=== PATIENT | female | born 1950 | race Caucasian/White ===

== ENCOUNTER → 2020-03-20 09:01 | Outpatient (BNVA) | payer OTHER, SELFPAY | PROVIDERS: PCP Internal Medicine; Referring Provider Internal Medicine; Visit Provider Internal Medicine Gastroenterology | DX: Z76.89 Persons encountering health services in other specified circumstances (principal) ==

== ENCOUNTER → 2020-03-26 15:17 | Outpatient (BNVA) | payer OTHER, SELFPAY | PROVIDERS: PCP Internal Medicine; Referring Provider Internal Medicine; Visit Provider Urology | DX: Z76.89 Persons encountering health services in other specified circumstances (principal) ==

== ENCOUNTER 2020-05-21 10:28 | Day surgery (SDC) | payer OTHER, SELFPAY ==
[2020-05-15 19:42] VITALS: BMI 22.3
[2020-05-21 10:36] VITALS: BP 144/78; PULSE 65; RESP 16; TEMP 36.6; O2SAT 97
--- NOTE | 2020-05-21 10:40 | HO.ANESPROP2 ---
[facility] Past Medical History Medical History (Updated 05/15/20 @ 19:46 by Genesis Hooper RN) Anxiety Bunion, left foot Colon cancer screening (Unknown) History of migraine Hypercholesterolemia Kidney stone Osteopenia Spinal stenosis at L4-L5 level Family History Family History (Updated 03/19/20 @ 13:49 by RIANNA Vasquez) Father Myocardial infarct Mother Pneumonia Brother No problems noted. Sister Lung cancer Surgical History Surgical History (Updated 05/15/20 @ 19:45 by Genesis Hooper RN) History of colonoscopy History of foot surgery History of vocal cord polypectomy Hx of bilateral oophorectomy Hx of tonsillectomy Social History Social History (Updated 03/20/20 @ 09:19 by Leni Slaughter MD) Household Members: Children Alcohol intake: current Alcohol intake frequency: holidays/special occasions only Alcohol type: wine and hard liquor Smoking Status: Never smoker Use of substances other than those prescribed or required for medical reasons: No Advance Directives: Yes Advance Directives Information Provided: Yes Advance Directives on File: No (patient will bring with her) Advance Directives Date on File: 07/16/09 Meds Allergies Allergy/AdvReac Type Severity Reaction Status Date / Time doxycycline Allergy Unknown Foaming of Verified 05/21/20 10:36 the mouth simvastatin [SIMVASTATIN] Allergy Unknown LEG PAIN, Verified 05/21/20 10:36 muscle aches Sulfa (Sulfonamide Allergy Unknown Burning Verified 05/21/20 10:36 Antibiotics) rash on body sulfamethoxazole Allergy Unknown RASH Verified 05/21/20 10:36 [From BACTRIM] trimethoprim [From BACTRIM] Allergy Unknown RASH Verified 05/21/20 10:36 Home Medications Medication Instructions Recorded Confirmed Type ascorbic acid (vitamin C) 500 mg 500 mg PO DAILY 03/20/20 05/15/20 History capsule cholecalciferol (vitamin D3) 25 25 mcg PO DAILY 03/20/20 05/15/20 History mcg (1,000 unit) capsule ferrous sulfate 325 mg (65 mg 325 mg PO DAILY 03/20/20 05/15/20 History iron) tablet lorazepam 0.5 mg tablet 0.5 mg PO DAILY PRN 03/20/20 05/15/20 History docusate sodium 100 mg capsule 100 mg PO DAILY 03/26/20 05/15/20 History naproxen 500 mg tablet 500 mg PO BID 03/26/20 05/15/20 History pravastatin 40 mg tablet 40 mg PO BEDTIME 03/26/20 05/15/20 History aspirin 81 mg tablet,delayed 81 mg PO DAILY 04/03/20 05/15/20 History release amoxicillin 1 cap PO Q8H 05/15/20 05/15/20 History cnuwaqa-beuoipoxeqijc-nwtndrqi 1 tab PO Q4-6H PRN 05/15/20 05/15/20 History [Excedrin Migraine] multivitamin [Multi-Vitamin] 1 tab PO DAILY 05/15/20 05/15/20 History Exam Exam Date and Time: May 21, 2020 1040 Height,Weight and Vital Signs: Height 5 ft 2 in Weight 55.338 kg Airway Mallampati Class: III (Multiple caps small mouth) TM Dist: >3cm Neck ROM: Full Partial: Lower (Perm) Heart: RRR Lungs: CTA B L Assessment and Plan Assessment Anesthesia Assessment: Anesthesia Plan Discussed and PAT Visit Final Anesthetic Review NPO: Yes ASA Class: II Final Preanesthetic Review: Meds/Allgs Chart Reviewed and Anes Risks/Benef Reviewed Patient Risk: Intermediate Procedure Risk: Intermediate Anesthetic Plan Anesthetic Plan: MAC: Disposition: Standard PACU
[2020-05-21] MEDS: Lactated Ringers 1,000 ML 50 ML IVCONT (10:54)
--- NOTE | 2020-05-21 11:01 | MHC.SHP ---
Pre-Procedural Eval Section B Chief Complaint: Iron Def Anemia, Screening Details of Present Illness: Colon cancer screening, Iron deficiency Anemia NO changes from the visit 03/20/20 Relevant Family History (Specify if Yes): No Relevant Social History: None Present Medications: see Short Stay Collaborative assessment Medical History: Significant History (Spinal Stenosis, Hx kidney stones) History of Previous Operations: Relevant previous surgery/procedure and date(s) (bilateral oophorectomy) Allergies: Allergies Allergy/AdvReac Type Severity Reaction Status Date / Time doxycycline Allergy Unknown Foaming of Verified 05/21/20 10:36 the mouth simvastatin [SIMVASTATIN] Allergy Unknown LEG PAIN, Verified 05/21/20 10:36 muscle aches Sulfa (Sulfonamide Allergy Unknown Burning Verified 05/21/20 10:36 Antibiotics) rash on body sulfamethoxazole Allergy Unknown RASH Verified 05/21/20 10:36 [From BACTRIM] trimethoprim [From BACTRIM] Allergy Unknown RASH Verified 05/21/20 10:36 Review of Systems Sugical H&P ROS: Negative: Constitution, Cardiovascular, Respiratory, Neurological, Psychiatric, Gastrointestinal and Musculoskeletal and Yes, Specify: Hem-Onc (iron deficiency anemia) Exam Surgical H&P Exam: Normal: HEENT, Normal: Heart, Normal: Lungs, Normal: Extremities and Normal: Abdomen Plan Diagnosis/Plan: Unchanged Patient has been examined and remains a candidate for the planned procedure yes
[2020-05-21 11:39] VITALS: BP 90/53; PULSE 63; RESP 16; TEMP 36.3; O2SAT 97
--- NOTE | 2020-05-21 11:42 | PM.OP ---
Brief Operative Note Date of Service: 05/21/20 Pre-op diagnosis: Iron deficiency anemia, Colon Cancer Screening Post-op diagnosis: other (Superficial Gastritis, Hiatal hernia; Diverticulosis) Procedure: EGD with bx; colo neg Implants: na Surgeon: Leni Slaughter MD Anesthesia: MAC (MD Lisa) Estimated blood loss (mL): 5 Pathology: other (Random gastric bx) Condition: stable Disposition: PACU
[2020-05-21 11:54] VITALS: BP 112/68; PULSE 78; RESP 18; O2SAT 97
--- NOTE | 2020-05-21 12:25 | HO.POSTANES ---
Post Anesthesia Evaluation Post Anesthesia Evaluation Vital Signs: Vital Signs Temp Pulse Resp BP Pulse Ox 05/21/20 11:54 97.4 F 78 18 112/68 97 05/21/20 11:39 97.4 F 63 16 90/53 L 97 05/21/20 10:36 97.9 F 65 16 144/78 H 97 Anesthesia: Monitored Mental Status: Awake Pain Control: Satisfactory Nausea/Vomiting: None Hydration: Adequate Anesthesia-Related Issues: No Anes. Related Issues
--- NOTE | 2020-05-22 00:11 | OP_ITS ---
SURGEON: Leni Slaughter MD ESTIMATED BLOOD LOSS: Less than 5 mL. COMPLICATIONS: No complications. ANESTHESIA: Monitored. ANESTHESIOLOGIST: Dr. 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 SPECIMENS: Specimens removed; random gastric biopsies on upper endoscopy, no specimens from colonoscopy. PREOPERATIVE DIAGNOSES: Iron deficiency anemia, colon cancer screening. Note, the patient has had a low ferritin and a low iron saturation dating back to 2012. I see no documented episodes of bleeding. Today, she is scheduled for both an upper endoscopy and colonoscopy, the latter is colon cancer screening. POSTOPERATIVE DIAGNOSES: Small hiatal hernia, superficial gastritis (bile present in gastric aspirate), diverticulosis. OBSTETRICS AND GYNECOLOGY PROFESSOR: Dr. Slaughter. PROCEDURES PERFORMED: Endoscopy with biopsy; random gastric colonoscopy, no biopsies were obtained. CONDITION: Postop, stable. FINDINGS: Video endoscope was introduced without difficulty. It was navigated into the posterior pharynx and into the esophagus. Esophageal mucosa was normal down to the level of the GE junction. GE junction was clear and distinct. Distal to this was a small 1 to 2 cm hiatal hernia. On entering the stomach, there was diffuse erythema from fundus to antrum, mild. There was bile present, scattered about in the varying views of the mucosa. Duodenal bulb and duodenum appeared endoscopically normal with endoscopically normal villi. The scope was repositioned. Random gastric biopsies were obtained. COMMENT: Bleeding from biopsy sites did turn coffee-ground color prior at the end of the exam. This would suggest that the patient has adequate acid production. FINDINGS: Colonoscopic digital rectal exam revealed no specific lesion. Video colonoscope was introduced without difficulty. It was navigated into the rectosigmoid area. There were scattered diverticula in the sigmoid-descending colon. Scope advanced slowly through transverse, ascending colon, down into the cecum. Appendiceal orifice was seen. Ileocecal valve was well seen. No mucosal abnormalities were appreciated. Prep was excellent. Slow rotational views on withdrawing the scope. Anorectal verge was clear. No additional lesions were seen. CURRENT RECOMMENDATIONS: Repeat asymptomatic screening in a patient with chronic anemia, should not exceed 7 years. Would recommend periodic FIT testing at years 3, 5, and 7. Chronic gastritis, especially, if associated with H. Pylori gastritis can be associated with disruption of gastric mucosal integrity. This can lead to chronic low grade microscopic blood loss. If found, would treat this. GRAFT OR IMPLANTS: No grafts or implants. Leni Slaughter MD MEN[facility]OCK / [id number] MTDD
== END 2020-05-21 12:27 | disposition home or self-care (01) ==
PROVIDERS: PCP Internal Medicine; Visit Provider Internal Medicine Gastroenterology
PROC: (CPT 45378; principal; 2020-05-21 11:30)
DX: Z12.11 Encounter for screening for malignant neoplasm of colon (principal); K57.30 Diverticulosis of large intestine without perforation or abscess without bleeding; K29.30 Chronic superficial gastritis without bleeding; K44.9 Diaphragmatic hernia without obstruction or gangrene; D50.9 Iron deficiency anemia, unspecified; Z79.899 Other long term (current) drug therapy; Z88.2 Allergy status to sulfonamides; Z88.8 Allergy status to other drugs, medicaments and biological substances
CPT/HCPCS: 45378; 43239; 88305; 88342

== ENCOUNTER 2020-05-30 | Outpatient (REF) | payer OTHER, SELFPAY ==
[2020-06-03 13:10] LABS: FIT Int Ctl YES; FIT1 NEGATIVE (NEGATIVE); FIT2 NEGATIVE (NEGATIVE)
== END 2020-05-30 00:01 | disposition home or self-care (01) ==
LOC: HO.LNP
PROVIDERS: Visit Provider Internal Medicine Gastroenterology
DX: D50.8 Other iron deficiency anemias (principal)
CPT/HCPCS: 82274

== ENCOUNTER → 2020-06-19 13:52 | Outpatient (BNVA) | payer OTHER, MEDICARE, SELFPAY | PROVIDERS: PCP Internal Medicine; Visit Provider Internal Medicine Gastroenterology | DX: Z76.89 Persons encountering health services in other specified circumstances (principal) ==

== ENCOUNTER 2020-06-28 11:54 | Outpatient (REF) | payer OTHER, MEDICARE, SELFPAY ==
[2020-06-28 13:17] LABS: MANUAL DIFF FLAG NO
[2020-06-28 13:20] LABS: Basophils Percent Auto 1.2 % (0-2); Eosinophils Absolute Auto 0.1 X10*3/uL (0.0-0.4); Eosinophils Percent Auto 1.9 % (0-4); Hematocrit 43.4 % (37-47); Hemoglobin 14.3 g/dl (12.0-16.0); Imm Gran Abs Auto 0.01 X10*3/uL (0.00-0.03); Imm Gran Pct Auto 0.3 % (0.0-0.4); Immature Retic Fraction 0.9 % (3.0-15.9); Lymphocytes Percent Auto 30.2 % (20-40); Mean Corpuscular HGB Conc 32.9 g/dl (31.0-35.0); Mean Corpuscular Hemoglobin 31.2 pg (27.0-33.0); Mean Corpuscular Volume 94.8 fL (80-98); Mean Platelet Volume 8.9 fL (9.4-12.3); Monocytes Absolute Auto 0.4 X10*3/uL (0.1-1.2); Monocytes Percent Auto 13.4 % (2-11); Neutrophils Absolute Auto 1.7 X10*3/uL (2.0-8.3); Platelet Count 272 X10*3/uL (160-400); Red Blood Count 4.58 X10*6/uL (4.20-5.50); Red Cell Distribution Width 12.6 % (11.0-16.0); Retic HGB Equivalent 34.2 pg (30.0-35.0); Reticulocyte Percent 0.9 % (0.5-1.8); Reticulocytes Absolute 0.043 X10*6/uL (0.026-0.095); White Blood Count 3.2 X10*3/uL (4.8-10.8)
[2020-06-28 14:15] LABS: Alanine Aminotransferase 14 U/L (0-31); Alkaline Phosphatase 83 U/L (39-117); Anion Gap 11 (12-20); Aspartate Amino Transferase 24 U/L (5-31); Bilirubin Total 0.9 mg/dL (0.0-1.0); Blood Urea Nitrogen 13 mg/dL (9-16); Calcium 8.8 mg/dL (8.4-10.2); Carbon Dioxide 30 mmol/L (22-29); Chloride 105 mmol/L (96-108); Cholesterol 201 mg/dL; Estimated Glomerular Filt Rate > 60; Glucose Random 96 mg/dL (60-115); HDL Cholesterol 59 mg/dL; Iron 230 mcg/dL (30-160); LDL Cholesterol Calculated 122 mg/dl; Percent Iron Saturation 68 % (15-50); Potassium 4.6 mmol/l (3.3-5.1); Sodium 141 mmol/L (135-145); Total Iron Binding Capacity 337 mcg/dL (228-428); Total Protein 6.6 g/dL (6.5-8.0); Triglycerides 102 mg/dL; Unsaturated Iron Binding 107 ug/dL
[2020-06-28 14:36] LABS: Ferritin 40 ng/mL (10-250)
[2020-06-28 14:54] LABS: Folate 9.9 ng/mL (> or = 4.0); Vitamin B12 435 pg/mL (200-900)
== END 2020-06-28 11:55 | disposition home or self-care (01) ==
LOC: HO.LAB 11:54
PROVIDERS: Absent Provider Internal Medicine Gastroenterology; PCP Internal Medicine; Visit Provider Internal Medicine
DX: D50.8 Other iron deficiency anemias (principal); E78.00 Pure hypercholesterolemia, unspecified
CPT/HCPCS: 36415; 80053; 80061; 82607; 82728; 82746; 83540; 84443; 85025; 85045

== ENCOUNTER 2020-08-26 11:32 | Outpatient (REF) | payer OTHER, SELFPAY ==
--- NOTE | ~2020-08-26 | US_ITS ---
EXAMINATION: US RETROPERITONEAL LIMITED (RENAL ONLY) CLINICAL INFORMATION: Calculus kidney. COMPARISON: CT abdomen and pelvis 02/19/2020. TECHNIQUE: Real-time imaging of the kidneys. FINDINGS: RIGHT KIDNEY: 9.2 x 3.6 x 5.5 cm (SAG x AP x TRV). The kidney is normal in size, contour, and echogenicity. Renal cortical thickness is normal. No calculi or focal parenchymal lesions. There is mild pelvic fullness. LEFT KIDNEY: 9.8 x 4.6 x 4.1 cm (SAG x AP x TRV). The kidney is normal in size, contour, and echogenicity. Renal cortical thickness is normal. No focal parenchymal lesions or hydronephrosis. There is an echogenic stone in the lower pole measuring 0.3 x 0.2 x 0.2 cm. No additional stones seen. There is no caliectasis. US/US renal BI IMPRESSION: Nonobstructive echogenic stone lower pole left kidney. This was visualized on the previous CT abdomen and pelvic exam 02/19/2020. Mild right renal pelvic fullness. No echogenic stones seen.
== END 2020-08-26 11:33 | disposition home or self-care (01) ==
LOC: HO.US 11:32
PROVIDERS: Visit Provider Urology
DX: N20.0 Calculus of kidney (principal)
CPT/HCPCS: 76775

== ENCOUNTER → 2020-09-05 09:09 | Outpatient (BNVA) | payer OTHER, SELFPAY | PROVIDERS: PCP Internal Medicine; Visit Provider Urology ==

== ENCOUNTER → 2020-09-20 13:43 | Outpatient (BNVA) | payer OTHER, SELFPAY | PROVIDERS: PCP Internal Medicine; Visit Provider Internal Medicine Gastroenterology ==

== ENCOUNTER → 2021-03-14 14:15 | Outpatient (REF) | payer OTHER, SELFPAY ==
--- NOTE | 2021-03-14 14:25 | ECG_ITS ---
Test Reason : preop Blood Pressure : / mmHG Vent. Rate : 055 BPM Atrial Rate : 055 BPM P-R Int : 186 ms QRS Dur : 078 ms QT Int : 436 ms P-R-T Axes : 040 015 045 degrees QTc Int : 417 ms Sinus bradycardia Otherwise normal ECG When compared with ECG of 19-FEB-2020 08:25, Heart rate has decreased Referred By: Maciel Aldana Electronically Signed By:SAM QUIROGA
[2021-03-14 14:37] LABS: MANUAL DIFF FLAG NO
[2021-03-14 14:54] LABS: Basophils Percent Auto 1.2 % (0-2); Eosinophils Absolute Auto 0.1 X10*3/uL (0.0-0.4); Eosinophils Percent Auto 2.4 % (0-4); Hemoglobin 14.2 g/dl (12.0-16.0); Imm Gran Abs Auto 0.01 X10*3/uL (0.00-0.03); Imm Gran Pct Auto 0.3 % (0.0-0.4); Lymphocytes Absolute Auto 1.5 X10*3/uL (1.2-4.9); Lymphocytes Percent Auto 43.8 % (20-40); Mean Corpuscular HGB Conc 33.8 g/dl (31.0-35.0); Mean Corpuscular Hemoglobin 32.3 pg (27.0-33.0); Mean Corpuscular Volume 95.7 fL (80-98); Mean Platelet Volume 8.4 fL (9.4-12.3); Monocytes Absolute Auto 0.5 X10*3/uL (0.1-1.2); Monocytes Percent Auto 13.5 % (2-11); Neutrophils Absolute Auto 1.3 X10*3/uL (2.0-8.3); Neutrophils Percent Auto 38.8 % (45-73); Platelet Count 252 X10*3/uL (160-400); Red Blood Count 4.39 X10*6/uL (4.20-5.50); Red Cell Distribution Width 12.3 % (11.0-16.0); White Blood Count 3.4 X10*3/uL (4.8-10.8)
[2021-03-14 14:59] LABS: Prothrombin Time 11.8 SEC (9.9-13.0)
[2021-03-14 15:09] LABS: Anion Gap 12 (12-20); Blood Urea Nitrogen 14 mg/dL (9-16); Calcium 9.5 mg/dL (8.4-10.2); Carbon Dioxide 26 mmol/L (22-29); Chloride 106 mmol/L (96-108); Estimated Glomerular Filt Rate > 60; Glucose Random 90 mg/dL (60-115); Sodium 140 mmol/L (135-145)
== END ==
LOC: HO.CARD 14:15
PROVIDERS: PCP Internal Medicine; Visit Provider Physician Assistant
DX: Z01.818 Encounter for other preprocedural examination (principal)
CPT/HCPCS: 36415; 80048; 85025; 85610; 93005

== ENCOUNTER 2021-12-12 12:28 | Outpatient (REF) | payer MEDICARE, OTHER, SELFPAY ==
[2021-12-12 12:42] LABS: MANUAL DIFF FLAG NO
[2021-12-12 13:32] LABS: Basophils Absolute Auto 0.1 X10*3/uL (0.0-0.2); Basophils Percent Auto 1.2 % (0-2); Eosinophils Absolute Auto 0.1 X10*3/uL (0.0-0.4); Eosinophils Percent Auto 1.2 % (0-4); Hematocrit 42.6 % (37.0-47.0); Hemoglobin 14.2 g/dl (12.0-16.0); Imm Gran Abs Auto 0.01 X10*3/uL (0.00-0.03); Imm Gran Pct Auto 0.2 % (0.0-0.4); Lymphocytes Absolute Auto 1.6 X10*3/uL (1.2-4.9); Lymphocytes Percent Auto 36.5 % (20-40); Mean Corpuscular HGB Conc 33.3 g/dl (31.0-35.0); Mean Corpuscular Hemoglobin 31.8 pg (27.0-33.0); Mean Corpuscular Volume 95.5 fL (80.0-98.0); Mean Platelet Volume 8.6 fL (9.4-12.3); Monocytes Absolute Auto 0.5 X10*3/uL (0.1-1.2); Neutrophils Absolute Auto 2.1 x10*3/uL (2.0-8.3); Neutrophils Percent Auto 48.9 % (45-73); Platelet Count 317 X10*3/uL (160-400); Red Blood Count 4.46 X10*6/uL (4.20-5.50); Red Cell Distribution Width 12.5 % (11.0-16.0); White Blood Count 4.3 X10*3/uL (4.8-10.8)
[2021-12-12 13:56] LABS: Alanine Aminotransferase 19 U/L (0-31); Albumin Level 4.1 g/dL (3.5-5.0); Alkaline Phosphatase 78 U/L (39-117); Anion Gap 11 (12-20); Aspartate Amino Transferase 29 U/L (5-31); Bilirubin Total 0.6 mg/dL (0.0-1.0); Blood Urea Nitrogen 17 mg/dL (9-16); Calcium 9.5 mg/dL (8.4-10.2); Carbon Dioxide 28 mmol/L (22-29); Chloride 107 mmol/L (96-108); Cholesterol 239 mg/dL; Estimated Glomerular Filt Rate > 60; Glucose Random 96 mg/dL (60-115); HDL Cholesterol 63 mg/dL; LDL Cholesterol Calculated 164 mg/dl; Potassium 4.8 mmol/L (3.3-5.1); Sodium 141 mmol/L (135-145); Triglycerides 63 mg/dL
[2021-12-12 14:17] LABS: Free T4 (Free Thyroxine) 0.84 ng/dL (0.71-1.85); Vitamin D 25-OH Total 37.9 ng/mL (>30)
[2021-12-12 14:47] LABS: Folate 16.7 ng/mL (> or = 4.0); Vitamin B12 460 pg/mL (200-900)
== END 2021-12-12 12:29 | disposition home or self-care (01) ==
LOC: HO.LAB 12:28
PROVIDERS: PCP Internal Medicine; Visit Provider Internal Medicine
DX: E78.00 Pure hypercholesterolemia, unspecified (principal)
CPT/HCPCS: 36415; 80053; 80061; 82306; 82607; 82746; 84439; 84443; 85025

== ENCOUNTER 2022-01-03 10:04 | Outpatient (REF) | payer OTHER, MEDICARE, SELFPAY ==
--- NOTE | ~2022-01-03 | XR_ITS ---
EXAMINATION: XR RIBS, RIGHT CLINICAL INFORMATION: Chest pain COMPARISON: None TECHNIQUE: 3 views of the right ribs were obtained. Chest one view. FINDINGS: Lungs are clear. No consolidation, pneumothorax, or pleural effusion. The cardiomediastinal silhouette and pulmonary vasculature are normal. Osseous structures are unremarkable. Ribs are intact. No fractures are identified. XR/XR ribs RT min 3V w CXR1V IMPRESSION: Unremarkable chest and right rib series
== END 2022-01-03 10:05 | disposition home or self-care (01) ==
LOC: HO.XRAY 10:04
PROVIDERS: Absent Provider Nurse Practitioner Family; PCP Internal Medicine; Visit Provider Internal Medicine
DX: R07.9 Chest pain, unspecified (principal)
CPT/HCPCS: 71101

== ENCOUNTER 2022-04-06 11:55 | Outpatient (REF) | payer MEDICARE, OTHER, SELFPAY ==
[2022-04-06 12:16] LABS: MANUAL DIFF FLAG NO
[2022-04-06 13:33] LABS: Basophils Absolute Auto 0.1 X10*3/uL (0.0-0.2); Basophils Percent Auto 1.5 % (0-2); Eosinophils Absolute Auto 0.1 X10*3/uL (0.0-0.4); Eosinophils Percent Auto 1.7 % (0-4); Hematocrit 42.5 % (37.0-47.0); Hemoglobin 14.3 g/dl (12.0-16.0); Imm Gran Abs Auto 0.01 X10*3/uL (0.00-0.03); Imm Gran Pct Auto 0.2 % (0.0-0.4); Lymphocytes Absolute Auto 1.6 X10*3/uL (1.2-4.9); Lymphocytes Percent Auto 38.7 % (20-40); Mean Corpuscular HGB Conc 33.6 g/dl (31.0-35.0); Mean Corpuscular Hemoglobin 31.8 pg (27.0-33.0); Mean Corpuscular Volume 94.4 fL (80.0-98.0); Mean Platelet Volume 9.1 fL (9.4-12.3); Monocytes Absolute Auto 0.4 X10*3/uL (0.1-1.2); Monocytes Percent Auto 10.4 % (2-11); Neutrophils Absolute Auto 1.9 x10*3/uL (2.0-8.3); Neutrophils Percent Auto 47.5 % (45-73); Platelet Count 274 X10*3/uL (160-400); Red Cell Distribution Width 12.5 % (11.0-16.0)
[2022-04-06 14:02] LABS: Alanine Aminotransferase 16 U/L (0-31); Albumin Level 4.1 g/dL (3.5-5.0); Alkaline Phosphatase 73 U/L (39-117); Anion Gap 16 (12-20); Aspartate Amino Transferase 34 U/L (5-31); Bilirubin Total 0.6 mg/dL (0.0-1.0); Blood Urea Nitrogen 17 mg/dL (9-16); Calcium 9.3 mg/dL (8.4-10.2); Carbon Dioxide 22 mmol/L (22-29); Chloride 105 mmol/L (96-108); Cholesterol 209 mg/dL; Estimated Glomerular Filt Rate > 60; Glucose Random 79 mg/dL (60-115); HDL Cholesterol 60 mg/dL; LDL Cholesterol Calculated 132 mg/dl; Potassium 4.4 mmol/L (3.3-5.1); Sodium 139 mmol/L (135-145); Total Protein 6.9 g/dL (6.5-8.0); Triglycerides 89 mg/dL
== END 2022-04-06 11:56 | disposition home or self-care (01) ==
LOC: HO.LAB 11:55
PROVIDERS: PCP Internal Medicine; Visit Provider Internal Medicine
DX: E78.00 Pure hypercholesterolemia, unspecified (principal)
CPT/HCPCS: 36415; 80053; 80061; 85025

== ENCOUNTER 2022-05-12 14:12 | Outpatient (REF) | payer MEDICARE, OTHER, SELFPAY ==
--- NOTE | ~2022-05-12 | MM_ITS ---
EXAMINATION: BONE DENSITOMETRY CLINICAL INDICATION: Other specified disorders of bone density and structure, unspecified. COMPARISON: Previous BD dated 02/02/2019 and baseline BD dated 01/25/2015. TECHNIQUE: Using a [employer] DXA System (software version: 13.1) manufactured by [employer], dual-energy x-ray absorptiometry was performed of the lumbar spine and left hip. The images are of good technical quality. Summary results are attached. FINDINGS: AP SPINE L1-L4 (excluding L3): The data of L1-L4 has been changed to exclude the L3 vertebral body because there is metallic artifact at right anterior vertebral body from overlying navel piercing. Current: BMD 1.093 g/cm2, Z-score 1.4, T-score -0.6, normal, 0.6% increase from previous, 1.8% decrease from baseline (<5% change is not significant). Prior: BMD 1.109 g/cm2. Baseline: BMD 1.141 g/cm2. LEFT FEMUR, NECK: Current: BMD 0.680 g/cm2, Z-score -0.6, T-score -2.6, osteoporosis. Prior: BMD 0.662 g/cm2. Baseline: BMD 0.649 g/cm2. LEFT FEMUR, TOTAL: Current: BMD 0.742 g/cm2, Z-score -0.3, T-score -2.1, osteopenia, 1.6% decrease from previous, 0.7% decrease from baseline (<5% change is not significant). Prior: BMD 0.754 g/cm2. Baseline: BMD 0.747 g/cm2. IDENTIFIED RISK FACTORS: Bilateral oophorectomy, menopause, hysterectomy, secondary osteoporosis. HISTORY OF FRACTURE: None listed. MEDICATIONS: Calcium, vitamin D. MM/XR DEXA axial skeleton IMPRESSION: 1. DIAGNOSIS: Osteoporosis based on the lowest T-score value of -2.6 in the femoral neck applying World Health Organization criteria. 2. 10-YEAR FRACTURE RISK PREDICTION, FRAX: According to the guidelines, FRAX calculation should only be performed on patients in the osteopenia bone density category. Therefore, FRAX was not performed on this patient. 3. Treatment Recommendations: NOF guidelines recommend consideration for treatment in postmenopausal women and men age 50 and older presenting with the following: -A hip or vertebral (clinical or morphometric) fracture. -T-score less than or equal to -2.5 at the femoral neck or spine after appropriate evaluation to exclude secondary causes. -Low bone mass at the hip or spine and a 10-year fracture probability by FRAX of greater than or equal to 3% for hip fracture or greater than or equal to 20% for major osteoporotic fracture based on the [place] adapted WHO algorithm. 4. Other Recommendations: All treatment decisions require clinical judgment and consideration of individual patient factors, including patient preferences, comorbidities, previous drug use, risk factors not captured in the FRAX model (e.g. frailty, falls, vitamin D deficiency, increased bone turnover, interval significant decline in bone density) and possible under or overestimation of fracture risk by FRAX. Additional medical evaluation for secondary cause of low bone mineral density may be appropriate. FUTURE SCAN RECOMMENDATION: People with diagnosed cases of osteoporosis or at high risk for fracture should have regular bone mineral density tests. For patients eligible for Medicare, routine testing is allowed once every 2 years. The testing frequency can be increased to one year for patients who have rapidly progressing disease, those who are receiving or discontinuing medical therapy to restore bone mass, or have additional risk factors.
== END 2022-05-12 14:13 | disposition home or self-care (01) ==
LOC: HO.MAMMO 14:12
PROVIDERS: PCP Internal Medicine; Visit Provider Nurse Practitioner Family
DX: Z13.820 Encounter for screening for osteoporosis (principal); M85.80 Other specified disorders of bone density and structure, unspecified site; Z78.0 Asymptomatic menopausal state
CPT/HCPCS: 77080

== ENCOUNTER → 2022-05-26 15:11 | Outpatient (BNVA) | payer MEDICARE, OTHER, SELFPAY | PROVIDERS: PCP Internal Medicine; Visit Provider Internal Medicine Endocrinology, Diabetes & Metabolism | DX: M81.0 Age-related osteoporosis without current pathological fracture (principal) | CPT/HCPCS: 99202 ==

== ENCOUNTER 2022-06-12 10:15 | Outpatient (REF) | payer MEDICARE, OTHER, SELFPAY ==
[2022-06-12 12:00] LABS: Phosphorus 3.6 mg/dL (2.7-4.5)
[2022-06-12 13:15] LABS: Creatinine, mg/dL 86.25
[2022-06-12 16:15] LABS: Creatinine, 24Hr Urine 0.6 G/Day (1.0-2.0); Total Volume 24 Hour Urine 725 mL
[2022-06-15 23:33] LABS: Calcium, 24 Hr Urine 51 mg/24 h; Calcium/Creatinine Ratio 84 mg/g creat (30-275)
[2022-06-16 11:54] LABS: Prot Elec - Albumin 4.6 g/dL (3.8-4.8); Prot Elec - Alpha1 0.3 g/dL (0.2-0.3); Prot Elec - Alpha2 0.7 g/dL (0.5-0.9); Prot Elec - Beta 1 0.5 g/dL (0.4-0.6); Prot Elec - Beta 2 0.4 g/dL (0.2-0.5); Prot Elec - Total Protein 7.4 g/dL (6.1-8.1)
== END 2022-06-12 10:16 | disposition home or self-care (01) ==
LOC: HO.LAB 10:15
PROVIDERS: PCP Internal Medicine; Visit Provider Internal Medicine Endocrinology, Diabetes & Metabolism
DX: M81.0 Age-related osteoporosis without current pathological fracture (principal)
CPT/HCPCS: 36415; 82340; 82570; 84100; 84165; 86335

== ENCOUNTER → 2022-10-23 14:46 | Outpatient (BNVA) | payer MEDICARE, OTHER, SELFPAY | PROVIDERS: PCP Internal Medicine; Visit Provider Internal Medicine Endocrinology, Diabetes & Metabolism | DX: M81.0 Age-related osteoporosis without current pathological fracture (principal) | CPT/HCPCS: 99212 ==

== ENCOUNTER 2022-10-26 14:03 | Outpatient (REF) | payer MEDICARE, OTHER, SELFPAY ==
--- NOTE | ~2022-10-26 | XR_ITS ---
EXAMINATION: XR CHEST CLINICAL INFORMATION: Cough and chest tightness. History of pneumonia. COMPARISON: Previous chest x-ray most recent December 2021 TECHNIQUE: 2 views of the chest were obtained. FINDINGS: The cardiac and mediastinal contours are stable. The lungs are well inflated. The lungs are clear. No pleural effusion or pneumothorax. Degenerative changes of the spine. XR/XR chest 2V IMPRESSION: Well-inflated lungs. No evidence for acute disease in the chest.
== END 2022-10-26 14:04 | disposition home or self-care (01) ==
LOC: HO.XRAY 14:03
PROVIDERS: PCP Internal Medicine; Visit Provider Internal Medicine
DX: R05.9 Cough, unspecified (principal)
CPT/HCPCS: 71046

== ENCOUNTER 2023-01-01 12:55 | Outpatient (AMB) | payer MEDICARE, OTHER, SELFPAY ==
--- NOTE | 2023-01-01 12:57 | MHC.OFFWIV ---
Intake Vital Signs 01/01/23 13:06 Height 5 ft 1 in BP 136/64 Blood Pressure Location Lt brachial Position Sitting Pulse 57 Pulse Source Pulse Oximeter Temp 96.3 F L Temp Source Temporal Artery Scan Pulse Oximetry (%) 96 Oxygen Delivery Method Room Air Intake Visit Reasons: EP vaginal/anal itching,skin tears,sore (lobby) Intake Note: Pt is here c/o vaginal itching. Pt also states her urine is very yellow for the last two weeks. Patient Tobacco Use Status: Never used Tobacco Allergies doxycycline Allergy (Unknown, Verified 01/01/23 12:57) Foaming of the mouth simvastatin [SIMVASTATIN] Allergy (Unknown, Verified 01/01/23 12:57) LEG PAIN, muscle aches Sulfa (Sulfonamide Antibiotics) Allergy (Unknown, Verified 01/01/23 12:57) Burning rash on body sulfamethoxazole [From BACTRIM] Allergy (Unknown, Verified 01/01/23 12:57) RASH trimethoprim [From BACTRIM] Allergy (Unknown, Verified 01/01/23 12:57) RASH Do you need a note to return to daycare/school/sports/work: No HPI HPI Comments History of Present Illness Details This is a 72-year-old female presenting to the office today for sick visit. Patient complaining of vaginal/anal irritation, pruritus, soreness, and itching as well as dysuria. Patient states she has a history of urinary incontinence and wears a pad most of the time. She has not noticed any abnormal vaginal bleeding. She has not noticed any abnormal vaginal discharge. She denies any fevers or chills. Patient has been utilizing [id number] Vagisil without relief. [facility] Medical History (Updated 10/29/22 @ 10:22 by Julio Clemons MD) Acute dermatitis Breast asymmetry Bunion, left foot Bunion, left foot Colon cancer screening (Unknown) Fall H. pylori infection History of migraine Hypercholesterolemia Impacted cerumen of left ear Kidney stone Osteopenia Osteoporosis Right-sided chest pain Spinal stenosis at L4-L5 level Upper back pain on right side Surgical History H/O foot surgery History of colonoscopy History of esophagogastroduodenoscopy (EGD) History of foot surgery History of vocal cord polypectomy Hx of bilateral oophorectomy Hx of tonsillectomy Family History Father Myocardial infarct Family history of arthritis Mother Pneumonia Myocardial infarct Brother No problems noted. Sister Lung cancer Paternal Aunt Rheumatoid arthritis Social History Household Members: Children Household Members Other:: son-43 years old Housing: House Alcohol intake: current Alcohol intake frequency: holidays/special occasions only Alcohol type: wine Patient Tobacco Use Status: Never used Tobacco Tobacco use type: Cigarette e-Cigarette/Vaping Use: Never Used Second Hand Smoke Exposure: No Advance Directives Date on File: 07/16/09 service: No Current occupational status: employed Cognitive needs: No Hearing needs: No Vision needs: Yes Review of Systems Const All systems reviewed & are unremarkable except as noted in HPI and below Reports no additional complaints Eyes Reports no additional complaints ENT Reports no additional complaints Card Reports no additional complaints Resp Reports no additional complaints Reports no additional complaints, Reports dysuria, Denies vaginal discharge and Reports vaginal pruritus Musc Reports no additional complaints Skin/Breast Reports system reviewed and no additional complaints, except as documented Neuro Reports no additional complaints Psych Reports no additional complaints Endo Reports no additional complaints Artur/Lymph Reports no additional complaints Aller/Immun Reports no additional complaints Physical Exam Vital Signs: Last Vital Signs Temp 96.3 F L 01/01/23 13:06 Pulse 57 01/01/23 13:06 BP 136/64 01/01/23 13:06 Pulse Ox 96 01/01/23 13:06 Oxygen Delivery Method Room Air 01/01/23 13:06 Const General: cooperative, healthy appearing, comfortable, no acute distress, well developed, alert, awake and Physically active Orientation/consciousness: patient oriented x3 HEENT Head: Yes normal to inspection Ears: hearing grossly normal bilaterally General nose exam: Normal external nose present Face and sinus: Yes normal facial exam Resp Effort & Inspection: normal respiratory effort Auscultation: clear to auscultation bilaterally Cardio Rate: regular rate Rhythm: regular rhythm Heart sounds: no gallops, no murmurs and no rubs Other: Air Saw Operator present. External genitalia with beefy red rash, no vaginal discharge noted, no anal fissures, external hemorrhoids, or skin tears noted. External Female Exam: erythema Skin General skin exam: erythema Neuro General: patient oriented x3 Cranial nerves: Yes CN's II-XII intact bilaterally Gait exam (Neuro): Normal gait present Motor exam (neuro): 5/5 motor strength present throughout Results AMB Urinalysis, Automated UA Leukoctes 0 Randolph/uL Last Edit by Hodan Mims [facility] on 01/01/23 13:10 UA Nitrite Negative Last Edit by Hodan Mims [facility] on 01/01/23 13:10 UA Urobilinogen 0.2 mg/dL Last Edit by JanellStacia Mims [facility] on 01/01/23 13:10 UA Protein 0 mg/dL Last Edit by Hodan Mims [facility] on 01/01/23 13:10 UA pH 6.0 Last Edit by Hodan Mims [facility] on 01/01/23 13:10 UA Blood 10 Oscar/uL Last Edit by Hodan Mims [facility] on 01/01/23 13:10 UA Specific Norman 1.025 Last Edit by Hodan Mims [facility] on 01/01/23 13:10 UA Ketone Negative Last Edit by JanellSiria Mims [facility] on 01/01/23 13:10 UA Bilirubin 0 mg/dL Last Edit by Hodan Mism [facility] on 01/01/23 13:10 UA Glucose 0 mg/dL Last Edit by JanellSiria Mims [facility] on 01/01/23 13:10 Results Reviewed Results Reviewed: Laboratory Last Values Urine pH (Auto) 6.0 01/01/23 13:08 Specific Norman (Auto) 1.025 01/01/23 13:08 Urine Protein (Auto) 0 mg/dL 01/01/23 13:08 Glucose (UA)(Auto) 0 mg/dL 01/01/23 13:08 Urine Ketones (Auto) Negative 01/01/23 13:08 Urine Blood (Auto) 10 Oscar/uL 01/01/23 13:08 Urine Nitrite (Auto) Negative 01/01/23 13:08 Urine Bilirubin (Auto) 0 mg/dL 01/01/23 13:08 Urine Urobilinogen (Auto) 0.2 mg/dL 07/21/23 13:08 Leukocyte Esterase (Auto) 0 Randolph/uL 01/01/23 13:08 Assessment & Plan Assessment & Plan (1) Vulvovaginal candidiasis: Code(s): B37.31 - Acute candidiasis of vulva and vagina Plan This is a 72-year-old female who presents to the office today complaining of vaginal/anal itching, soreness, and irritation. On physical examination, patient appears to have a beefy red rash of her external genitalia extending to her anus. History and physical most consistent with a vulvovaginal/intertriginous candidiasis. Urinalysis negative for UTI. PO fluconazole 150 mg followed by repeat dose in 3 days. Clotrimazole cream also prescribed to the patient. Patient advised to follow-up here or go to the emergency room for worsening symptoms. Orders: Orders AMB Urinalysis Automated Today Z13.9 - Encounter for screening, unspecified Medications: New fluconazole may repeat second dose 72 hrs after first dose if symptoms persist 150 mg PO Q3D 2 tabs 0RF 2 doses clotrimazole 2% 1 appful vaginal BEDTIME 21 grams 0RF 3 days Coding Level of Care Code Est Pt Level 3 (81116) Diagnoses Vulvovaginal candidiasis B37.31
[2023-01-01 13:06] VITALS: BP 136/64; PULSE 57; TEMP 35.7; O2SAT 96
== END 2023-01-01 13:55 | disposition home or self-care (01) ==
PROVIDERS: PCP Internal Medicine; Visit Provider Physician Assistant Medical
DX: Z13.9 Encounter for screening, unspecified (principal); B37.31 Acute candidiasis of vulva and vagina
CPT/HCPCS: 81003; 99213

== ENCOUNTER 2023-01-27 12:53 | Outpatient (AMB) | payer MEDICARE, OTHER, SELFPAY ==
[2023-01-27 13:06] VITALS: BP 160/80; PULSE 78; O2SAT 98; BMI 22.5
--- NOTE | 2023-01-27 13:06 | MHC.PC.OV ---
Vital Signs 01/27/23 13:06 Height 5 ft 1 in Weight 119 lb BMI 22.5 BP 160/80 H Blood Pressure Location Lt brachial Position Sitting Pulse 78 Pulse Source Pulse Oximeter Pulse Oximetry (%) 98 Oxygen Delivery Method Room Air Intake Visit Reasons: Rt shoulder pain/ Eye swelling/redness/ puffiness Allergies doxycycline Allergy (Unknown, Verified 01/27/23 13:08) Foaming of the mouth simvastatin [SIMVASTATIN] Allergy (Unknown, Verified 01/27/23 13:08) LEG PAIN, muscle aches Sulfa (Sulfonamide Antibiotics) Allergy (Unknown, Verified 01/27/23 13:08) Burning rash on body sulfamethoxazole [From BACTRIM] Allergy (Unknown, Verified 01/27/23 13:08) RASH trimethoprim [From BACTRIM] Allergy (Unknown, Verified 01/27/23 13:08) RASH Medication List - Last Reconciled 01/27/23 by Julio Sheriff Po, albuterol sulfate 90 mcg/actuation (Ventolin HFA) 2 puffs inhalation Q6H PRN alclometasone 0.05% 1 appl topical BID ascorbic acid (vitamin C) 500 mg PO DAILY sqrgtcy-ulbnogmxhftdx-glbibcyh 250-250-65 mg (Excedrin Migraine) 1 tab PO Q4-6H PRN cholecalciferol (vitamin D3) 25 mcg PO DAILY 90 days clotrimazole 2% 1 appful vaginal BEDTIME 3 days ferrous sulfate 325 mg PO DAILY 90 days fluticasone propionate 50 mcg/actuation (Flonase Allergy Relief) 2 sprays intranasal DAILY lorazepam 0.5 mg PO DAILY PRN multivitamin 1 tab PO DAILY naproxen 500 mg PO BID PRN omeprazole 20 mg PO BID 90 days pravastatin 40 mg PO BEDTIME pyridoxine (vitamin B6) 100 mg PO DAILY 90 days sertraline 25 mg PO DAILY Tobacco use date assessed: 07/02/22 Fall risk assessment: No Falls in past year Last assessed Fall Risk: 01/27/23 Dental Screening Dental Screen Date: 01/27/23 Did you have a dental visit in the last 12 months?: Yes Did you have a dental problem in the last 6 months where you did not have access to dental care?: No Was dental information given to patient?: Patient has dentist HPI Rt shoulder pain/ Eye swelling/redness/ puffiness HPI Details 73-year-old female with osteoporosis generalized anxiety disorder hypercholesterolemia last seen in October having bronchitis. Patient is here for follow-up. Review of the notes in December [facility] infection vaginal. Patient's last complete blood work was March 2022.complains of leakage uriation, itchiness - perineal pain. eye concern on ectropion and teary= R eye cataract beginning- seeing Dr. Mendes end of january. December 2022 R upper back pain- salonpas/biofreeze deny fall but was moving dog to the side deny fall , states pain R arm pain. Patient has a list of things right upper back pain right finger getting stuck. Has some cream that wants refill and caution discussed with the patient regarding the steroid creams. [facility] Medical History (Updated 01/27/23 @ 13:40 by Julio Clemons MD) Acute dermatitis Breast asymmetry Bunion, left foot Bunion, left foot Colon cancer screening (Unknown) Fall H. pylori infection History of migraine Hypercholesterolemia Impacted cerumen of left ear Kidney stone Osteopenia Osteoporosis Right-sided chest pain Spinal stenosis at L4-L5 level Upper back pain on right side Surgical History H/O foot surgery History of colonoscopy History of esophagogastroduodenoscopy (EGD) History of foot surgery History of vocal cord polypectomy Hx of bilateral oophorectomy Hx of tonsillectomy Family History Father Myocardial infarct Family history of arthritis Mother Pneumonia Myocardial infarct Brother No problems noted. Sister Lung cancer Paternal Aunt Rheumatoid arthritis Social History Household Members: Children Household Members Other:: son-43 years old Housing: House Alcohol intake: current Alcohol intake frequency: holidays/special occasions only Alcohol type: wine Patient Tobacco Use Status: Never used Tobacco Tobacco use type: Cigarette e-Cigarette/Vaping Use: Never Used Second Hand Smoke Exposure: No Advance Directives Date on File: 07/16/09 service: No Current occupational status: employed Cognitive needs: No Hearing needs: No Vision needs: Yes Questionnaire PHQ-9 Over the last 2 weeks, how often have you been bothered by any of the following problems? 1. Little interest or pleasure in doing things: more than half the days 2. Feeling down, depressed, or hopeless: more than half the days 3. Trouble falling or staying asleep, or sleeping too much: more than half the days 4. Feeling tired or having little energy: more than half the days 5. Poor appetite or overeating: more than half the days 6. Feeling bad about yourself - or that you are a failure or have let yourself or your family down: not at all 7. Trouble concentrating on things, such as reading the newspaper or watching television: several days 8. Moving or speaking so slowly that other people could have noticed. Or the opposite - being so fidgety or restless that you have been moving around a lot more than usual: several days 9. Thoughts that you would be better off or of hurting yourself in some way: not at all Total score: 12 Depression Screening Interpretation: Positive Source: Developed by Drs. Arsen Manuel, Lizet Ziegler, Ramon Franklin and colleagues, with an educational shelton from [employer]. Thrive Questionnaire Date Thrive assessed: 07/02/22 AUDIT C Alcohol Use Questionnaire (AUDIT-C) 1. How often do you have a drink containing alcohol?: Monthly or less 2. How many drinks containing alcohol do you have on a typical day when you are drinking?: 1 or 2 3. How often do you have six or more drinks on one occasion?: Never Total Score: 1 Score Reviewed/Action Taken: No CHIP-7 AMB Questionnaire CHIP-7 Date CHIP - 7 assessed: 07/02/22 Source: Developed by Drs. Arsen Manuel, Lizet Ziegler, Ramon Franklin and colleagues, with an educational shelton from [employer]. Physical exam (Primary Care) Vital Signs: Oxygen Delivery Method Room Air 01/27/23 13:06 Care Plan Goal for BP management: Pinkish discoloration periorbital skin area, ectropion noted on the eyes right more than left tenderness on the right upper paravertebral back area no redness no swelling Tobacco/Smoking Status: Tobacco use Status Tobacco use date assessed 07/02/22 10/29/22 10:01 Patient Tobacco Use Status Never used Tobacco 01/01/23 12:58 Tobacco use type Cigarette 10/29/22 10:01 e-Cigarette/Vaping Use Never Used 10/29/22 10:01 Depression Screening Interpretation: Positive Thrive Assessment: Date of Thrive Assessment Date Thrive assessed 07/02/22 10/29/22 10:01 Const General: alert; No acute distress Eyes Conjunctivae: conjunctivae normal Resp Auscultation: clear to auscultation bilaterally Cardio Rate: regular rate Rhythm: regular rhythm GI Inspection: Yes normal to inspection Extrem General: Yes normal to inspection and No edema Assessment and Plan Assessment & Plan (1) Generalized anxiety disorder: Comment: Declined referral for counseling Code(s): F41.1 - Generalized anxiety disorder Plan: Continue with present medication (2) Hypercholesterolemia: Code(s): E78.00 - Pure hypercholesterolemia, unspecified Plan: Avoid fried foods, chicken skin, eggs, butter margarine, pastries and meat. Be it pork or beef they have a lot of cholesterol LDL goal of less than 130 and triglyceride of less than 150 patient is presently on pravastatin 40 mg once a day (3) Vaginal atrophy: Code(s): N95.2 - Postmenopausal atrophic vaginitis (4) Ectropion: Code(s): H02.109 - Unspecified ectropion of unspecified eye, unspecified eyelid Plan: premarin vaginal cream sent (5) Eczema: Code(s): L30.9 - Dermatitis, unspecified (6) Upper back pain on right side: Comment: r 2nd finger Code(s): M54.9 - Dorsalgia, unspecified Plan: xray ordered and advised PT (7) Trigger finger: Code(s): M65.30 - Trigger finger, unspecified finger Plan: splints advised . Orders: Orders Ferritin 2 Months D50.8 - Other iron deficiency anemias IRON PROFILE 2 Months D50.8 - Other iron deficiency anemias Reticulocyte Count 2 Months D50.8 - Other iron deficiency anemias XR chest 2V Today M54.9 - Dorsalgia, unspecified XR cervical spine 2V Today M54.9 - Dorsalgia, unspecified Medications: New conjugated estrogens (Premarin) off 5 days; repeat cycle 0.625 mg vaginal DAILY 30 grams 0RF N95.2 - Postmenopausal atrophic vaginitis fluocinolone 0.025% 1 appl topical BID 15 grams 0RF Changed From alclometasone 0.05% Apply twice a day to redness below lower lip for 7 days. 1 appl topical BID 15 grams 0RF L30.9 - Dermatitis, unspecified To alclometasone 0.05% apply to periorbital area 1 appl topical BID 15 grams 0RF L30.9 - Dermatitis, unspecified Discontinued fluconazole may repeat second dose 72 hrs after first dose if symptoms persist Discontinued Reason: Patient Completed Course 150 mg PO Q3D 2 tabs 0RF benzonatate Discontinued Reason: Patient Completed Course 200 mg PO BID PRN 20 caps 0RF cough J20.9 - Acute bronchitis, unspecified guaifenesin ER (Mucinex) Discontinued Reason: Patient Completed Course 600 mg PO BID 14 tabs 0RF J20.9 - Acute bronchitis, unspecified Coding Level of Care Code Est Pt Level 4 (65645) Diagnoses Generalized anxiety disorder F41.1 Hypercholesterolemia E78.00 Vaginal atrophy N95.2 Ectropion H02.109 Eczema L30.9 Upper back pain on right side M54.9 Trigger finger M65.30 Additional Codes PHQ-9 - 38467 - PHQ-9 Billing: Y ([id number])
== END 2023-01-27 13:47 | disposition home or self-care (01) ==
PROVIDERS: PCP Internal Medicine; Visit Provider Internal Medicine
DX: E78.00 Pure hypercholesterolemia, unspecified (principal); M54.9 Dorsalgia, unspecified; M65.311 Trigger thumb, right thumb; N95.2 Postmenopausal atrophic vaginitis; F41.1 Generalized anxiety disorder; L30.9 Dermatitis, unspecified; H02.103 Unspecified ectropion of right eye, unspecified eyelid
CPT/HCPCS: 99214

== ENCOUNTER 2023-01-27 14:26 | Outpatient (REF) | payer MEDICARE, OTHER, SELFPAY ==
--- NOTE | ~2023-01-27 | XR_ITS ---
EXAMINATION: XR CERVICAL SPINE CLINICAL INFORMATION: Pain. COMPARISON: None available. TECHNIQUE: 4 views of the cervical spine were obtained. FINDINGS: Age indeterminate 0.7 cm anterolisthesis of C4 on C5. Age indeterminate deformity of the posterior spinous process at the level of C5. No evidence of acute compression deformity. Severe intervertebral disc height loss at C5-C6 and C6-C7. Prominent multilevel posterior osteophyte complexes likely leading to neural foraminal encroachment as well as central canal stenosis in the mid and lower cervical spine. No prevertebral soft tissue thickening. Included portions of the lung apices are clear. XR/XR cervical spine 2V IMPRESSION: 1. Age indeterminate deformity of the posterior spinous process at the level of C5. 2. Age-indeterminate anterolisthesis of C4 on C5. 3. Severe cervical spondylosis in the mid and lower cervical spine with suboptimal evaluation of nerve root impingement and canal narrowing in the absence of oblique views. Further evaluation with an MRI of the cervical spine could be obtained if an acute injury is clinically suspected. Additionally, further evaluation with the MRI would be helpful in characterization of disc pathologies, nerve impingement and central canal stenosis. The report will be called to the ordering clinician by a [place] [place] [facility] Physician Revenue Coordinator.
--- NOTE | ~2023-01-27 | XR_ITS ---
EXAMINATION: XR CHEST CLINICAL INFORMATION: Dorsalgia. COMPARISON: Chest radiograph 10/26/2022. TECHNIQUE: 2 views of the chest were obtained. FINDINGS: Normal appearance of the cardiomediastinal silhouette. No focal airspace opacity, pleural effusion or pneumothorax. Mild thoracic kyphosis with mild to moderate multilevel intervertebral disc height loss and minimal anterior wedging of at least 3 consecutive midthoracic vertebral bodies, stable compared to 10/26/2022. Visualized portions of the upper abdomen is within normal limits. XR/XR chest 2V IMPRESSION: 1. No acute cardiopulmonary findings. 2. Mild thoracic kyphosis with mild to moderate multilevel intervertebral disc height loss and minimal anterior wedging of at least 3 consecutive midthoracic vertebral bodies, stable compared to 10/26/2022.
== END 2023-01-27 14:27 | disposition home or self-care (01) ==
LOC: HO.XRAY 14:26
PROVIDERS: PCP Internal Medicine; Visit Provider Internal Medicine
DX: M54.9 Dorsalgia, unspecified (principal)
CPT/HCPCS: 71046; 72040

== ENCOUNTER 2023-04-16 14:34 | Outpatient (AMB) | payer MEDICARE, OTHER, SELFPAY ==
--- NOTE | 2023-04-16 14:38 | AM.OFFVISMDC ---
Intake Vital Signs 04/16/23 14:49 Height 5 ft 1 in Weight 121 lb BMI 22.9 BP 132/86 Blood Pressure Location Lt brachial Position Sitting Pulse 62 Pulse Source Pulse Oximeter Pulse Oximetry (%) 98 Oxygen Delivery Method Room Air Intake Visit Reasons: SWV [id number] Allergies doxycycline Allergy (Unknown, Verified 04/16/23 14:58) Foaming of the mouth simvastatin [SIMVASTATIN] Allergy (Unknown, Verified 04/16/23 14:58) LEG PAIN, muscle aches Sulfa (Sulfonamide Antibiotics) Allergy (Unknown, Verified 04/16/23 14:58) Burning rash on body sulfamethoxazole [From BACTRIM] Allergy (Unknown, Verified 04/16/23 14:58) RASH trimethoprim [From BACTRIM] Allergy (Unknown, Verified 04/16/23 14:58) RASH Medication List - Last Reconciled 04/16/23 by Fay Gaytan, DEPARTMENT SECRETARY albuterol sulfate 90 mcg/actuation (Ventolin HFA) 2 puffs inhalation Q6H PRN alclometasone 0.05% 1 appl topical BID ascorbic acid (vitamin C) 500 mg PO DAILY ndqdqex-dwcvbjkmraxkd-auvbgxyl 250-250-65 mg (Excedrin Migraine) 1 tab PO Q4-6H PRN cholecalciferol (vitamin D3) 25 mcg PO DAILY 90 days clotrimazole 2% 1 appful vaginal BEDTIME 3 days conjugated estrogens (Premarin) 0.625 mg vaginal DAILY ferrous sulfate 325 mg PO DAILY 90 days fluocinolone 0.025% 1 appl topical BID fluticasone propionate 50 mcg/actuation (Flonase Allergy Relief) 2 sprays intranasal DAILY lorazepam 0.5 mg PO DAILY PRN multivitamin 1 tab PO DAILY naproxen 500 mg PO BID PRN omeprazole 20 mg PO BID 90 days pravastatin 40 mg PO BEDTIME pyridoxine (vitamin B6) 100 mg PO DAILY 90 days sertraline 25 mg PO DAILY tacrolimus 0.03% topical HPI HPI Comments History of Present Illness Details 72-year-old female the history of iron deficiency anemia, hypercholesteremia, spinal stenosis L4- L5 and generalized anxiety disorder. Patient on Dr. Clemons presents today for SAWV. Mammogram 06/04/22: No evidence of malignancy.Next mamogram:Due 06/04/23 Bone density: 05/12/22;showed osteoporsis, patient follows [facility] endocrinology for this, patient wanted to hold off on biphosphanate therapy at this time. Colonoscopy: 07/21/2020, recommended follow-up in 7 years due to history of MARILYN. Patient up to date on pneumonia and TD vaccinations. Recommend flu shot, Patient would like to receive it today. [place] of care was reviewed with patient patient was provided with a written screening schedule. Patient reports has HCP and MOLST forsm completed at home and will bring in copies to be scanned into [facility]. [facility] Medical History (Updated 01/27/23 @ 13:40 by Julio Clemons MD) Osteoporosis Acute dermatitis Upper back pain on right side Right-sided chest pain Fall Impacted cerumen of left ear Bunion, left foot H. pylori infection Bunion, left foot History of migraine Breast asymmetry Hypercholesterolemia Osteopenia Kidney stone Spinal stenosis at L4-L5 level Colon cancer screening (Unknown) Surgical History H/O foot surgery History of esophagogastroduodenoscopy (EGD) History of foot surgery History of colonoscopy Hx of bilateral oophorectomy History of vocal cord polypectomy Hx of tonsillectomy Family History Father Myocardial infarct Family history of arthritis Mother Pneumonia Myocardial infarct Brother No problems noted. Sister Lung cancer Paternal Aunt Rheumatoid arthritis Social History Household Members: Children Household Members Other:: son-43 years old Housing: House Alcohol intake: current Alcohol intake frequency: holidays/special occasions only Alcohol type: wine Patient Tobacco Use Status: Never used Tobacco Tobacco use type: Cigarette e-Cigarette/Vaping Use: Never Used Second Hand Smoke Exposure: No Advance Directives Date on File: 07/16/09 service: No Current occupational status: employed Cognitive needs: No Hearing needs: No Vision needs: Yes Questionnaire Medicare Wellness Checkup [age] What gender do you identify with?: female During the past 4 weeks, how much have you been bothered by emotional problems such as feeling anxious, depressed, irritable, sad or downhearted, and blue?: slightly During the past 4 weeks, has your physical & emotional health limited your social activities with family, friends, neighbors, or groups?: not at all During the past 4 weeks, how much bodily pain have you generally had?: mild pain During the past 4 weeks, was someone available to help you if you needed & wanted help?: yes, a little During the past 4 weeks, what was the hardest physical activity you could do for at least 2 minutes?: moderate Can you get to places out of walking distance without help? (For eg., can you travel alone on buses, taxis or drive your car?): Yes Can you go shopping for groceries or clothes without someone's help?: Yes Can you prepare your own meals?: Yes Can you do your housework without help?: Yes Because of any health problems, do you need the help of another person with your personal care needs such as eating, bathing, dressing or getting around the house?: No Can you handle your own money without help?: Yes During the past 4 weeks, how would you rate your health in general?: good During the past 4 weeks how have things been going for you?: pretty well Are you having difficulties driving your car?: no Do you always fasten your seat belt when you are in a car?: yes, usually During past 4 weeks, have you been bothered by the following: never: Sexual problems? and seldom: Falling or dizzy when standing up, Trouble eating well?, Teeth or denture problems?, Problems using the telephone? and Tiredness or fatigue? Have you fallen 2 or more times in the past year?: No Are you afraid of falling?: Yes Are you a smoker?: no During the past 4 weeks, how many drinks of wine, beer, or other alcoholic beverages did you have?: 1 drink or less per week Do you exercise for about 20 minutes 3 or more times a week?: yes, most of the time Have you been given information to help with the following?: yes: Keeping track of your medications? and no: Hazards in your house that might hurt you? How often do you have trouble taking medicines the way you have been told to take them?: I always take medicine as prescribed How confident are you that you can control & manage most of your health problems?: somewhat confident What is your race?: White Mini Mental State Exam (MMSE) Orientation What is the (year) (season) (date) (day) (month)?: year, season, date, day and month Score Score: 5 Activity of Daily Living Bathing - sponge bath, tub bath or shower: receives no assistance (gets in/out by self, if usual bathing means Dressing - getting clothes from closets & drawers, including inner/outer garments & fasteners.: gets clothes & gets completely dressed without help Toileting - going to the 'toilet room' for urine/bowel elimination & cleaning self/arranging clothes: goes to toilet room, cleans self, arranges clothes without help Transfer: moves in & out of bed and chair without help (may use support object) Continence: controls urination/bowel movements completely by self Feeding: feeds self without help Total Score: 0 Information obtained from: patient Using telephone: independent Traveling: independent Shopping: independent Preparing meals: independent Housework: independent Taking medicine: independent Managing money: independent PHQ-9 Over the last 2 weeks, how often have you been bothered by any of the following problems? 1. Little interest or pleasure in doing things: not at all 2. Feeling down, depressed, or hopeless: not at all 3. Trouble falling or staying asleep, or sleeping too much: not at all 4. Feeling tired or having little energy: not at all 5. Poor appetite or overeating: not at all 6. Feeling bad about yourself - or that you are a failure or have let yourself or your family down: not at all 7. Trouble concentrating on things, such as reading the newspaper or watching television: not at all 8. Moving or speaking so slowly that other people could have noticed. Or the opposite - being so fidgety or restless that you have been moving around a lot more than usual: not at all 9. Thoughts that you would be better off or of hurting yourself in some way: not at all Total score: 0 Depression Screening Interpretation: Negative Depression Screening Done: Yes 38506 - PHQ-9 Billing: Yes Source: Developed by Drs. Arsen Manuel, Lizet Ziegler, Ramon Franklin and colleagues, with an educational shelton from [employer]. Physical Exam Vital Signs: Last Vital Signs Pulse 62 04/16/23 14:49 BP 132/86 04/16/23 14:49 Pulse Ox 98 04/16/23 14:49 Oxygen Delivery Method Room Air 04/16/23 14:49 BMI result Body Mass Index 22.9 Const General: cooperative and no acute distress Orientation/consciousness: patient oriented x3 HEENT Ears: other (whisper test: pass) Neuro General: patient oriented x3 Gait exam (Neuro): Normal gait present Coordination: tandem gait normal and Romberg test negative Office Procedures Flu Questionnaire Does the patient have a severe egg allergy?: No Does the patient have severe life threatening allergies?: No Does the patient have a fever or illness today?: No Has the patient ever had Guillain-[place] Syndrome?: No Has the patient ever had any past reaction to a flu shot?: No Immunizations flu vacc [id number] 6mos up(PF) 60 mcg(15 mcgx4)/0.5 mL IM syringe Performing Provider: NINI Moreira Performing Location: [facility] Administered by: RIANNA Zamora on 04/16/23 15:37 Dose Route Admin Location Dispensed Lot Number Expiration Date NDC Legal Support Manager 0.5 mL IM Left Deltoid 0.5 mL [id number] 12/12/23 [id number] [employer] VIS Given Date VIS Provided VIS Publication Date 04/16/23 Single Vaccine 21 Eligibility Eligibility Date Funding Source Not [facility] Eligible 04/16/23 Private Assessment & Plan Assessment & Plan (1) Medicare annual wellness visit, subsequent: Code(s): Z00.00 - Encounter for general adult medical examination without abnormal findings Plan: Follow up in 1 year (2) Osteoporosis: Comment: January 2022 Code(s): M81.0 - Age-related osteoporosis without current pathological fracture Plan: Continue to follow with [facility]. (3) Hypercholesterolemia: Code(s): E78.00 - Pure hypercholesterolemia, unspecified Plan: Patient reminded to get previously ordered fasting labs completed. Continue on pravastatin. Follow low cholesterol diet. (4) Iron deficiency anemia: Onset Date: ~01/2020 Code(s): D50.9 - Iron deficiency anemia, unspecified Qualifiers: Iron deficiency anemia type: inadequate dietary iron intake Qualified Code(s): D50.8 - Other iron deficiency anemias Plan: Continue on p.o. iron therapy. Orders: Orders Influenza [id number] Immunization 04/16/23 Z23 - Encounter for immunization Medications: Refilled naproxen 500 mg PO BID PRN 60 tabs 3RF pain Quality Reporting (2019) Depression/Bipolar (159/160/161/177) PHQ-9: Total score: 0 Coding Level of Care Code Medicare Subsequent (G0439) Diagnoses Medicare annual wellness visit, subsequent Z00.00 Osteoporosis M81.0 Hypercholesterolemia E78.00 Iron deficiency anemia secondary to inadequate dietary iron intake D50.8 Iron deficiency anemia type: inadequate dietary iron intake CPT Codes Advance Care Planning - Time spent: 1-15 minutes, not on file ([id number]) Advance Care Planning Advance Care Planning discussion: Exists, not on file Date of discussion: 04/16/23 Who was present: Patient Forms completed: Health Care Proxy and MOLST Time spent: 1-15 minutes, not on file Actual minutes spent: 1 Did not discuss due to Cultural/Spiritual beliefs: No
[2023-04-16 14:49] VITALS: BP 132/86; PULSE 62; O2SAT 98; BMI 22.9
== END 2023-04-16 15:16 | disposition home or self-care (01) ==
PROVIDERS: Visit Provider Nurse Practitioner Family
DX: Z23 Encounter for immunization (principal)
CPT/HCPCS: 1124F; 90471; 90686; G0439

== ENCOUNTER 2023-05-25 13:33 | Outpatient (AMB) | payer MEDICARE, OTHER, SELFPAY ==
[2023-05-25 12:56] VITALS: BP 130/70; PULSE 61; O2SAT 94; BMI 22.7
--- NOTE | 2023-05-25 13:35 | A.OFFPC_ITS ---
Vital Signs 05/25/23 12:56 Height 5 ft 1 in Weight 120 lb 6 oz BMI 22.7 BP 130/70 Blood Pressure Location Lt brachial Position Sitting Pulse 61 Pulse Source Pulse Oximeter Pulse Oximetry (%) 94 Oxygen Delivery Method Room Air Intake Visit Reasons: pain on left side of head Intake Note: Patient is here today for pain on left side of head with headaches. 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 per policy Accompanied by: Self / Same As Patient Allergies doxycycline Allergy (Unknown, Verified 05/25/23 12:56) Foaming of the mouth simvastatin [SIMVASTATIN] Allergy (Unknown, Verified 05/25/23 12:56) LEG PAIN, muscle aches Sulfa (Sulfonamide Antibiotics) Allergy (Unknown, Verified 05/25/23 12:56) Burning rash on body sulfamethoxazole [From BACTRIM] Allergy (Unknown, Verified 05/25/23 12:56) RASH trimethoprim [From BACTRIM] Allergy (Unknown, Verified 05/25/23 12:56) RASH Tobacco use date assessed: 07/02/22 Fall risk assessment: No Falls in past year Last assessed Fall Risk: 05/25/23 Dental Screening Dental Screen Date: 05/25/23 Did you have a dental visit in the last 12 months?: Yes Did you have a dental problem in the last 6 months where you did not have access to dental care?: No Was dental information given to patient?: Patient has dentist HPI pain on left side of head HPI Details 73-year-old female with a history of lum bar spinal stenosis hypercholesterolemia nephrolithiasis generalized anxiety disorder osteoporosis coming in for an acute problem last seen in April 2023 patient is up-to-date with mammogram due this month bone density April 2022. 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 has also cataract and will plan for 06/18/[address] Ward. L sided ANDREW- no n no v, thirds am had epistaxis [facility] Medical History (Updated 05/25/23 @ 14:09 by Julio Clemons MD) Osteoporosis Acute dermatitis Upper back pain on right side Right-sided chest pain Fall Impacted cerumen of left ear Bunion, left foot H. pylori infection Bunion, left foot History of migraine Breast asymmetry Hypercholesterolemia Osteopenia Kidney stone Spinal stenosis at L4-L5 level Colon cancer screening (Unknown) Surgical History H/O foot surgery History of esophagogastroduodenoscopy (EGD) History of foot surgery History of colonoscopy Hx of bilateral oophorectomy History of vocal cord polypectomy Hx of tonsillectomy Family History Father Myocardial infarct Family history of arthritis Mother Pneumonia Myocardial infarct Brother No problems noted. Sister Lung cancer Paternal Aunt Rheumatoid arthritis Social History Household Members: Children Household Members Other:: son-43 years old Housing: House Alcohol intake: current Alcohol intake frequency: holidays/special occasions only Alcohol type: wine Patient Tobacco Use Status: Never used Tobacco Tobacco use type: Cigarette e-Cigarette/Vaping Use: Never Used Second Hand Smoke Exposure: No Advance Directives Date on File: 07/16/09 service: No Current occupational status: retired Cognitive needs: No Hearing needs: No Vision needs: Yes Questionnaire Thrive Questionnaire Date Thrive assessed: 07/02/22 CHIP-7 AMB Questionnaire CHIP-7 Date CHIP - 7 assessed: 07/02/22 Source: Developed by Drs. Arsen Manuel, Lizet Ziegler, Ramon Franklin and colleagues, with an educational shelton from [employer]. Physical exam (Primary Care) Vital Signs: Last Vital Signs Pulse 61 05/25/23 12:56 BP 130/70 05/25/23 12:56 Pulse Ox 94 05/25/23 12:56 Oxygen Delivery Method Room Air 05/25/23 12:56 BMI result Body Mass Index 22.7 Tobacco/Smoking Status: Tobacco use Status Tobacco use date assessed 07/02/22 05/25/23 13:44 Patient Tobacco Use Status Never used Tobacco 05/25/23 13:44 Tobacco use type Cigarette 05/25/23 13:44 e-Cigarette/Vaping Use Never Used 05/25/23 13:44 Thrive Assessment: Date of Thrive Assessment Date Thrive assessed 07/02/22 05/25/23 13:44 Const General: alert; No acute distress Eyes Conjunctivae: conjunctivae normal Resp Auscultation: clear to auscultation bilaterally Cardio Rate: regular rate Rhythm: regular rhythm GI Inspection: Yes normal to inspection Extrem General: Yes normal to inspection and No edema Assessment and Plan Assessment & Plan (1) Ectropion: Code(s): H02.109 - Unspecified ectropion of unspecified eye, unspecified eyelid Plan: Patient follows up with Ophthalmology (2) Osteoporosis: Comment: January 2022 Code(s): M81.0 - Age-related osteoporosis without current pathological fracture Plan: Patient will be seeing Endocrinology (3) Breast cancer screening by mammogram: Code(s): Z. - Encounter for screening mammogram for malignant neoplasm of breast Plan: Reminded about mammogram this month (4) Headache: Code(s): R51.9 - Headache, unspecified Orders: Orders CT head/brain wo IV con Today R51.9 - Headache, unspecified Coding Level of Care Code Est Pt Level 4 (99444) Diagnoses Ectropion H02.109 Osteoporosis M81.0 Breast cancer screening by mammogram Headache R51.9
== END 2023-05-25 14:14 | disposition home or self-care (01) ==
PROVIDERS: PCP Internal Medicine; Visit Provider Internal Medicine
DX: H02.109 Unspecified ectropion of unspecified eye, unspecified eyelid (principal); M81.0 Age-related osteoporosis without current pathological fracture; Z12.31 Encounter for screening mammogram for malignant neoplasm of breast; R51.9 Headache, unspecified
CPT/HCPCS: 99214

== ENCOUNTER 2023-06-03 14:38 | Outpatient (REF) | payer MEDICARE, OTHER, SELFPAY ==
--- NOTE | ~2023-06-03 | CT_ITS ---
EXAMINATION: CT HEAD WITHOUT CONTRAST CLINICAL INFORMATION: Headache. COMPARISON: None. TECHNIQUE: Contiguous axial imaging was performed from the skullbase to vertex without intravenous administration of contrast. This CT examination was performed using dose optimization techniques as appropriate, variously including the following: *Automated exposure control *Adjustment of mA and/or kV according to patient size (this includes techniques or standardized protocols for targeted exams where dose is matched to indication/reason for exam; i.e. extremities or head) *Use of iterative reconstruction technique DLP: 524 mGy-cm. FINDINGS: There is no evidence of acute intracranial hemorrhage or territorial infarction. No abnormal mass effect or midline shift is seen. Merrill to white matter differentiation is well preserved. No extra-axial fluid collections are identified. Mild chronic white matter microangiopathy evident. Moderate generalized brain parenchymal volume loss noted with ex vacuo dilatation of the frontal horns of the lateral ventricles. The osseous structures and soft tissues are normal. The mastoid air cells and visualized portions of the paranasal sinuses are well aerated. CT/CT head/brain wo IV con IMPRESSION: No acute intracranial hemorrhage or territorial infarction. Moderate parenchymal volume loss and mild chronic white matter microangiopathy.
[2023-06-03 15:30] LABS: MANUAL DIFF FLAG NO
[2023-06-03 17:26] LABS: Basophils Absolute Auto 0.1 X10*3/uL (0.0-0.2); Basophils Percent Auto 1.4 % (0-2); Eosinophils Absolute Auto 0.1 X10*3/uL (0.0-0.4); Eosinophils Percent Auto 1.6 % (0-4); Hematocrit 41.8 % (37.0-47.0); Hemoglobin 13.8 g/dl (12.0-16.0); Imm Gran Abs Auto 0.01 X10*3/uL (0.00-0.03); Imm Gran Pct Auto 0.2 % (0.0-0.4); Immature Retic Fraction 5.4 % (3.0-15.9); Lymphocytes Absolute Auto 1.7 X10*3/uL (1.2-4.9); Lymphocytes Percent Auto 32.7 % (20-40); Mean Corpuscular Hemoglobin 31.9 pg (27.0-33.0); Mean Corpuscular Volume 96.5 fL (80.0-98.0); Mean Platelet Volume 9.2 fL (9.4-12.3); Monocytes Absolute Auto 0.5 X10*3/uL (0.1-1.2); Monocytes Percent Auto 9.4 % (2-11); Neutrophils Absolute Auto 2.8 x10*3/uL (2.0-8.3); Neutrophils Percent Auto 54.7 % (45-73); Platelet Count 267 X10*3/uL (160-400); Red Blood Count 4.33 X10*6/uL (4.20-5.50); Red Cell Distribution Width 12.4 % (11.0-16.0); Retic HGB Equivalent 37.5 pg (30.0-35.0); Reticulocytes Absolute 0.042 X10*6/uL (0.026-0.095); White Blood Count 5.1 X10*3/uL (4.8-10.8)
[2023-06-03 17:57] LABS: Alanine Aminotransferase 13 U/L (0-31); Albumin Level 3.9 g/dL (3.5-5.0); Alkaline Phosphatase 81 U/L (39-117); Anion Gap 14 (12-20); Aspartate Amino Transferase 27 U/L (5-31); Bilirubin Total 0.7 mg/dL (0.0-1.0); Blood Urea Nitrogen 13 mg/dL (9-16); Calcium 9.3 mg/dL (8.4-10.2); Carbon Dioxide 26 mmol/L (22-29); Chloride 106 mmol/L (96-108); Cholesterol 187 mg/dL (<200); Estimated Glomerular Filt Rate > 60; Glucose Random 82 mg/dL (60-115); HDL Cholesterol 66 mg/dL (>40); Iron 115 mcg/dL (30-160); LDL Cholesterol Calculated 108 mg/dL (<100); Percent Iron Saturation 38 % (15-50); Sodium 142 mmol/L (135-145); Total Iron Binding Capacity 302 mcg/dL (228-428); Total Protein 6.9 g/dL (6.5-8.0); Triglycerides 68 mg/dL (<150); Unsaturated Iron Binding 187 ug/dL
[2023-06-03 18:15] LABS: Ferritin 70 ng/mL (10-250); Free T4 (Free Thyroxine) 0.82 ng/dL (0.71-1.85); Vitamin D 25-OH Total 37.5 ng/mL (>30)
[2023-06-03 18:22] LABS: Folate 10.2 ng/mL (> or = 4.0); Vitamin B12 550 pg/mL (200-900)
== END 2023-06-03 14:39 | disposition home or self-care (01) ==
LOC: HO.CT 14:38
PROVIDERS: PCP Internal Medicine; Visit Provider Internal Medicine
DX: R51.9 Headache, unspecified (principal); E78.00 Pure hypercholesterolemia, unspecified; D50.8 Other iron deficiency anemias
CPT/HCPCS: 36415; 70450; 80053; 80061; 82306; 82607; 82728; 82746; 83540; 84439; 84443; 85025; 85045

== ENCOUNTER 2023-08-31 14:08 | Outpatient (AMB) | payer MEDICARE, OTHER, SELFPAY ==
[2023-08-31 14:15] VITALS: BP 124/78; PULSE 84; O2SAT 99; BMI 20.8
--- NOTE | 2023-08-31 14:15 | A.OFFPC_ITS ---
Vital Signs 08/31/23 14:15 Height 5 ft 1 in Weight 110 lb 0.2 oz BMI 20.8 BP 124/78 Blood Pressure Location Lt brachial Position Sitting Pulse 84 Pulse Source Pulse Oximeter Pulse Oximetry (%) 99 Oxygen Delivery Method Room Air Intake Visit Reasons: 4 month f/u Intake Note: Patient is here to follow up on 4 month Weight Control Engineer Required: No Allergies doxycycline Allergy (Unknown, Verified 08/31/23 14:40) Foaming of the mouth simvastatin [SIMVASTATIN] Allergy (Unknown, Verified 08/31/23 14:40) LEG PAIN, muscle aches Sulfa (Sulfonamide Antibiotics) Allergy (Unknown, Verified 08/31/23 14:40) Burning rash on body sulfamethoxazole [From BACTRIM] Allergy (Unknown, Verified 08/31/23 14:40) RASH trimethoprim [From BACTRIM] Allergy (Unknown, Verified 08/31/23 14:40) RASH Medication List - Last Reconciled 08/31/23 by Julio Clemons MD alclometasone 0.05% 1 appl topical BID ascorbic acid (vitamin C) 500 mg PO DAILY [id number] 250-250-65 mg (Excedrin Migraine) 1 tab PO Q4-6H PRN cholecalciferol (vitamin D3) 25 mcg PO DAILY 90 days ferrous sulfate 325 mg PO DAILY 90 days fluocinolone 0.025% 1 appl topical BID fluticasone propionate 50 mcg/actuation (Flonase Allergy Relief) 2 sprays intranasal DAILY lorazepam 0.5 mg PO DAILY PRN multivitamin 1 tab PO DAILY naproxen 500 mg PO BID PRN omeprazole 20 mg PO BID 90 days pravastatin 40 mg PO BEDTIME pyridoxine (vitamin B6) 100 mg PO DAILY 90 days sertraline 25 mg PO DAILY tacrolimus 0.03% topical Tobacco use date assessed: 08/31/23 Fall risk assessment: No Falls in past year Last assessed Fall Risk: 08/31/23 Dental Screening Dental Screen Date: 08/31/23 Did you have a dental visit in the last 12 months?: Yes Did you have a dental problem in the last 6 months where you did not have access to dental care?: No Was dental information given to patient?: Patient has dentist HPI 4 month f/u HPI Details 3-year-old female with hypercholesterole clarisse iron deficiency anemia generalized anxiety disorder coming in for follow-up. Last seen in May 2023. Patient's mammogram is due colonoscopy is due noted weight loss. winter- feling depressedn , had sertraline., lost apetitte. concern on prices of food and so has lost weight. Patient also complains of itchiness on the back was questioning bed bugs but discussed that usually bed bugs is going to be all over rather than just the upper back. Discussed that this is dry skin dermatitis. Knee referral for cholesterol medication. [facility] Medical History (Updated 08/31/23 @ 15:23 by Julio Clemons MD) Osteoporosis Acute dermatitis Upper back pain on right side Right-sided chest pain Fall Impacted cerumen of left ear Bunion, left foot H. pylori infection Bunion, left foot History of migraine Breast asymmetry Hypercholesterolemia Osteopenia Kidney stone Spinal stenosis at L4-L5 level Colon cancer screening (Unknown) Surgical History H/O foot surgery History of esophagogastroduodenoscopy (EGD) History of foot surgery History of colonoscopy Hx of bilateral oophorectomy History of vocal cord polypectomy Hx of tonsillectomy Family History Father Myocardial infarct Family history of arthritis Mother Pneumonia Myocardial infarct Brother No problems noted. Sister Lung cancer Paternal Aunt Rheumatoid arthritis Social History Household Members: Children Household Members Other:: son-43 years old Housing: House Alcohol intake: current Alcohol intake frequency: holidays/special occasions only Alcohol type: wine Patient Tobacco Use Status: Never used Tobacco Tobacco use type: Cigarette e-Cigarette/Vaping Use: Never Used Second Hand Smoke Exposure: No Advance Directives Date on File: 07/16/09 service: No Current occupational status: retired Cognitive needs: No Hearing needs: No Vision needs: Yes Questionnaire Thrive Questionnaire Date Thrive assessed: 08/31/23 AUDIT C Alcohol Use Questionnaire (AUDIT-C) 1. How often do you have a drink containing alcohol?: Monthly or less 2. How many drinks containing alcohol do you have on a typical day when you are drinking?: 1 or 2 3. How often do you have six or more drinks on one occasion?: Never Total Score: 1 Score Reviewed/Action Taken: No CHIP-7 AMB Questionnaire CHIP-7 Date CHIP - 7 assessed: 08/31/23 Source: Developed by Drs. Arsen Manuel, Lizet Ziegler, Ramon Franklin and colleagues, with an educational shelton from [employer]. Physical exam (Primary Care) Vital Signs: Last Vital Signs Pulse 84 08/31/23 14:15 BP 124/78 08/31/23 14:15 Pulse Ox 99 08/31/23 14:15 Oxygen Delivery Method Room Air 08/31/23 14:15 BMI result Body Mass Index 20.8 Tobacco/Smoking Status: Tobacco use Status Tobacco use date assessed 08/31/23 08/31/23 14:16 Patient Tobacco Use Status Never used Tobacco 08/31/23 14:16 Tobacco use type Cigarette 08/31/23 14:16 e-Cigarette/Vaping Use Never Used 08/31/23 14:16 Thrive Assessment: Date of Thrive Assessment Date Thrive assessed 08/31/23 08/31/23 14:46 Const General: alert; No acute distress Eyes Conjunctivae: conjunctivae normal Resp Auscultation: clear to auscultation bilaterally Cardio Rate: regular rate Rhythm: regular rhythm GI Inspection: Yes normal to inspection Extrem General: Yes normal to inspection and No edema Assessment and Plan Assessment & Plan (1) Headache: Code(s): R51.9 - Headache, unspecified Plan: CT scan done negative results. (2) Hypercholesterolemia: Code(s): E78.00 - Pure hypercholesterolemia, unspecified Plan: Avoid fried foods, chicken skin, eggs, butter margarine, pastries and meat. Be it pork or beef they have a lot of cholesterol on pravastatin 40 mg once a day (3) Generalized anxiety disorder: Comment: Declined referral for counseling Code(s): F41.1 - Generalized anxiety disorder Plan: Patient is advised to start medication. (4) Dry skin dermatitis: Code(s): L85.3 - Xerosis cutis Plan: Advised to put lotion on the back to less than scratching it. And advised patient if this does not get any better to call and we may have to do referral to dermatology. Medications: Refilled pravastatin 40 mg PO BEDTIME 90 tabs 2RF Coding Level of Care Code Est Pt Level 4 (82818) Diagnoses Headache R51.9 Hypercholesterolemia E78.00 Generalized anxiety disorder F41.1 Dry skin dermatitis L85.3
== END 2023-08-31 15:28 | disposition home or self-care (01) ==
PROVIDERS: PCP Internal Medicine; Visit Provider Internal Medicine
DX: R51.9 Headache, unspecified (principal); E78.00 Pure hypercholesterolemia, unspecified; F41.1 Generalized anxiety disorder; L85.3 Xerosis cutis
CPT/HCPCS: 99214

== ENCOUNTER 2023-11-02 15:45 | Outpatient (AMB) | payer MEDICARE, OTHER, SELFPAY ==
--- NOTE | 2023-11-02 15:54 | A.OFFVIS_ITS ---
Vital Signs 11/02/23 15:57 Height 5 ft 1.2 in Weight 114 lb 6.719 oz BMI 21.5 BP 114/70 Blood Pressure Location Lt brachial Position Sitting Pulse 61 Pulse Source Pulse Oximeter Intake Visit Reasons: f/u osteoporosis-confirmed Intake Note: Patient presents today for Osteoporosis follow up. Surveillance Systems Analyst Required: No Accompanied by: Self / Same As Patient Allergies doxycycline Allergy (Unknown, Verified 11/02/23 15:58) Foaming of the mouth simvastatin [SIMVASTATIN] Allergy (Unknown, Verified 11/02/23 15:58) LEG PAIN, muscle aches Sulfa (Sulfonamide Antibiotics) Allergy (Unknown, Verified 11/02/23 15:58) Burning rash on body sulfamethoxazole [From BACTRIM] Allergy (Unknown, Verified 11/02/23 15:58) RASH trimethoprim [From BACTRIM] Allergy (Unknown, Verified 11/02/23 15:58) RASH Medication List - Last Reconciled 11/02/23 by Arsen Duenas MD alclometasone 0.05% 1 appl topical BID ascorbic acid (vitamin C) 500 mg PO DAILY [id number]-[id number]-zqbgndtj 250-250-65 mg (Excedrin Migraine) 1 tab PO Q4-6H PRN cholecalciferol (vitamin D3) 25 mcg PO DAILY 90 days ferrous sulfate 325 mg PO DAILY 90 days fluocinolone 0.025% 1 appl topical BID fluticasone propionate 50 mcg/actuation (Flonase Allergy Relief) 2 sprays intranasal DAILY lorazepam 0.5 mg PO DAILY PRN multivitamin 1 tab PO DAILY multivitamin with minerals (Hair,Skin and Nails tablet) 1 tab PO DAILY naproxen 500 mg PO BID PRN omeprazole 20 mg PO BID 90 days pravastatin 40 mg PO BEDTIME pyridoxine (vitamin B6) 100 mg PO DAILY 90 days sertraline 25 mg PO DAILY tacrolimus 0.03% topical HPI Comments Details: 73 YO F withis seen in consultation at the request of PCP for Osteoporosis. First diagnosed in recently . Not Received treatment in the past with [], from [] to []. Tolerated treatment well without complication. No history of pathologic fracture or ONJ. Has several servings of dietary calcium per day in the form of cheese, milk and ice cream . Not Takes Calcium supplement daily in divided doses. Takes 1000 IU of Vitamin D daily. takes PPI occasionally , -anticoagulant,- antiepileptic or -glucocorticoid medication. Does weight bearing exercise once 1 days per week in the form of dancing and walking . 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 Not hot flashes Has history of Kidney stones: Denies family history of Osteoporosis or hip fracture. UTD on dental cleanings and sees dentist every 6 months. No planned upcoming dental work or extractions. DXA dated 05/12/22:EXAMINATION: BONE DENSITOMETRY CLINICAL INDICATION: Other specified disorders of bone density and structure, unspecified. COMPARISON: Previous BD dated 02/02/2019 and baseline BD dated 01/25/2015. TECHNIQUE: Using a [employer] DXA System (software version: 13.1) manufactured by [employer], dual-energy x-ray absorptiometry was performed of the lumbar spine and left hip. The images are of good technical quality. Summary results are attached. FINDINGS: AP SPINE L1-L4 (excluding L3):? The data of L1-L4 has been changed to exclude the L3 vertebral body because there is metallic artifact at right anterior vertebral body from overlying navel piercing. Current: BMD 1.093 g/cm2, Z-score 1.4, T-score -0.6, normal, 0.6% increase from previous, 1.8% decrease from baseline (<5% change is not significant). Prior: BMD 1.109 g/cm2. Baseline: BMD 1.141 g/cm2. LEFT FEMUR, NECK: Current: BMD 0.680 g/cm2, Z-score -0.6, T-score -2.6, osteoporosis. Prior: BMD 0.662 g/cm2. Baseline: BMD 0.649 g/cm2. LEFT FEMUR, TOTAL: Current: BMD 0.742 g/cm2, Z-score -0.3, T-score -2.1, osteopenia, 1.6% decrease from previous, 0.7% decrease from baseline (<5% change is not significant). Prior: BMD 0.754 g/cm2. Baseline: BMD 0.747 g/cm2. IDENTIFIED RISK FACTORS: Bilateral oophorectomy, menopause, hysterectomy, secondary osteoporosis. HISTORY OF FRACTURE: None listed. MEDICATIONS: Calcium, vitamin D. MM/XR DEXA axial skeleton IMPRESSION: 1. DIAGNOSIS: Osteoporosis based on the lowest T-score value of -2.6 in the femoral neck applying World Health Organization criteria.? Labs: Secondary workup is negative [facility] Medical History (Updated 08/31/23 @ 15:23 by Julio Clemons MD) Osteoporosis Acute dermatitis Upper back pain on right side Right-sided chest pain Fall Impacted cerumen of left ear Bunion, left foot H. pylori infection Bunion, left foot History of migraine Breast asymmetry Hypercholesterolemia Osteopenia Kidney stone Spinal stenosis at L4-L5 level Colon cancer screening (Unknown) Surgical History H/O foot surgery History of esophagogastroduodenoscopy (EGD) History of foot surgery History of colonoscopy Hx of bilateral oophorectomy History of vocal cord polypectomy Hx of tonsillectomy Family History Father Myocardial infarct Family history of arthritis Mother Pneumonia Myocardial infarct Brother No problems noted. Sister Lung cancer Paternal Aunt Rheumatoid arthritis Social History Household Members: Children Household Members Other:: son-43 years old Housing: House Alcohol intake: current Alcohol intake frequency: holidays/special occasions only Alcohol type: wine Patient Tobacco Use Status: Never used Tobacco Tobacco use type: Cigarette e-Cigarette/Vaping Use: Never Used Second Hand Smoke Exposure: No Advance Directives Date on File: 07/16/09 service: No Current occupational status: retired Cognitive needs: No Hearing needs: No Vision needs: Yes Physical Exam Vital Signs: Last Vital Signs Pulse 61 11/02/23 15:57 BP 114/70 11/02/23 15:57 BMI result Body Mass Index 21.5 Assessment & Plan Assessment & Plan (1) Osteoporosis: Comment: January 2022 Code(s): M81.0 - Age-related osteoporosis without current pathological fracture Category: Medical Plan: This is a 72-year-old white female with a history of osteoporosis . Secondary workup is negative After discussion of with the patient regarding pharmacologic therapy including oral intravenous bisphosphonate, patient is opting to hold off on taking pharmacologic therapy of present. Will repeat bone density in about 6 months time Orders: Orders XR DEXA axial skeleton 6 Months M81.0 - Age-related osteoporosis without current pathological fracture Coding Level of Care Code Est Pt Level 3 (06320) Diagnoses Osteoporosis M81.0
[2023-11-02 15:57] VITALS: BP 114/70; PULSE 61; BMI 21.5
== END 2023-11-02 16:11 | disposition home or self-care (01) ==
PROVIDERS: PCP Internal Medicine; Visit Provider Internal Medicine Endocrinology, Diabetes & Metabolism
DX: M81.0 Age-related osteoporosis without current pathological fracture (principal)
CPT/HCPCS: 99213

== ENCOUNTER → 2023-11-02 15:45 | Outpatient (BNVA) | payer MEDICARE, OTHER, SELFPAY | PROVIDERS: Visit Provider Internal Medicine Endocrinology, Diabetes & Metabolism | DX: M81.0 Age-related osteoporosis without current pathological fracture (principal) | CPT/HCPCS: 99212 ==

== ENCOUNTER 2023-12-17 10:52 | Outpatient (REF) | payer MEDICARE, OTHER, SELFPAY ==
[2023-12-17 11:05] LABS: MANUAL DIFF FLAG NO
[2023-12-17 11:52] LABS: Basophils Absolute Auto 0.1 X10*3/uL (0.0-0.2); Basophils Percent Auto 1.5 % (0-2); Eosinophils Absolute Auto 0.1 X10*3/uL (0.0-0.4); Eosinophils Percent Auto 2.1 % (0-4); Hematocrit 42.6 % (37.0-47.0); Hemoglobin 14.6 g/dl (12.0-16.0); Imm Gran Abs Auto 0.01 X10*3/uL (0.00-0.03); Imm Gran Pct Auto 0.2 % (0.0-0.4); Lymphocytes Absolute Auto 1.6 X10*3/uL (1.2-4.9); Lymphocytes Percent Auto 33.7 % (20-40); Mean Corpuscular HGB Conc 34.3 g/dl (31.0-35.0); Mean Corpuscular Hemoglobin 32.4 pg (27.0-33.0); Mean Corpuscular Volume 94.7 fL (80.0-98.0); Mean Platelet Volume 8.9 fL (9.4-12.3); Monocytes Absolute Auto 0.5 X10*3/uL (0.1-1.2); Monocytes Percent Auto 10.3 % (2-11); Neutrophils Absolute Auto 2.4 x10*3/uL (2.0-8.3); Neutrophils Percent Auto 52.2 % (45-73); Platelet Count 249 X10*3/uL (160-400); Red Cell Distribution Width 12.2 % (11.0-16.0); Reticulocytes Absolute 0.045 X10*6/uL (0.026-0.095); White Blood Count 4.7 X10*3/uL (4.8-10.8)
[2023-12-17 12:20] LABS: Alanine Aminotransferase 15 U/L (0-31); Alkaline Phosphatase 84 U/L (39-117); Anion Gap 10 (12-20); Aspartate Amino Transferase 28 U/L (5-31); Bilirubin Total 0.7 mg/dL (0.0-1.0); Blood Urea Nitrogen 14 mg/dL (9-16); Calcium 9.7 mg/dL (8.4-10.2); Carbon Dioxide 29 mmol/L (22-29); Chloride 108 mmol/L (96-108); Cholesterol 190 mg/dL (<200); Estimated Glomerular Filt Rate > 60; Glucose Random 83 mg/dL (60-115); HDL Cholesterol 66 mg/dL (>40); Iron 140 mcg/dL (30-160); LDL Cholesterol Calculated 108 mg/dL (<100); Percent Iron Saturation 46 % (15-50); Potassium 3.9 mmol/L (3.3-5.1); Sodium 143 mmol/L (135-145); Total Iron Binding Capacity 306 mcg/dL (228-428); Triglycerides 81 mg/dL (<150); Unsaturated Iron Binding 166 ug/dL
[2023-12-17 12:40] LABS: Ferritin 77 ng/mL (10-250); Free T4 (Free Thyroxine) 0.72 ng/dL (0.71-1.85); Thyroid Stimulating Hormone 1.71 uIU/mL (0.32-4.0)
[2023-12-17 12:44] LABS: Folate 9.6 ng/mL (> or = 4.0); Vitamin B12 515 pg/mL (200-900)
== END 2023-12-17 10:53 | disposition home or self-care (01) ==
LOC: HO.LAB 10:52
PROVIDERS: PCP Internal Medicine; Visit Provider Internal Medicine
DX: E78.00 Pure hypercholesterolemia, unspecified (principal); D50.8 Other iron deficiency anemias
CPT/HCPCS: 36415; 80053; 80061; 82607; 82728; 82746; 83540; 84439; 84443; 85025; 85045

== ENCOUNTER 2023-12-20 15:21 | Outpatient (AMB) | payer MEDICARE, OTHER, SELFPAY ==
[2023-12-20 15:30] VITALS: BP 110/62; PULSE 61; O2SAT 98; BMI 22.3
--- NOTE | 2023-12-20 15:30 | MHC.PC.OV ---
Vital Signs 12/20/23 15:30 Height 5 ft 1 in Weight 118 lb BMI 22.3 BP 110/62 Blood Pressure Location Lt brachial Position Sitting Pulse 61 Pulse Source Pulse Oximeter Pulse Oximetry (%) 98 Oxygen Delivery Method Room Air Intake Visit Reasons: 3 Month F/U Allergies doxycycline Allergy (Unknown, Verified 12/20/23 15:31) Foaming of the mouth simvastatin [SIMVASTATIN] Allergy (Unknown, Verified 12/20/23 15:31) LEG PAIN, muscle aches Sulfa (Sulfonamide Antibiotics) Allergy (Unknown, Verified 12/20/23 15:31) Burning rash on body sulfamethoxazole [From BACTRIM] Allergy (Unknown, Verified 12/20/23 15:31) RASH trimethoprim [From BACTRIM] Allergy (Unknown, Verified 12/20/23 15:31) RASH Medication List - Last Reconciled 12/20/23 by Julio Clemons MD alclometasone 0.05% 1 appl topical BID ascorbic acid (vitamin C) 500 mg PO DAILY [id number]-[id number]-msclhsiz 250-250-65 mg (Excedrin Migraine) 1 tab PO Q4-6H PRN cholecalciferol (vitamin D3) 25 mcg PO DAILY 90 days ferrous sulfate 325 mg PO DAILY 90 days fluocinolone 0.025% 1 appl topical BID fluticasone propionate 50 mcg/actuation (Flonase Allergy Relief) 2 sprays intranasal DAILY lorazepam 0.5 mg PO DAILY PRN multivitamin 1 tab PO DAILY multivitamin with minerals (Hair,Skin and Nails tablet) 1 tab PO DAILY naproxen 500 mg PO BID PRN omeprazole 20 mg PO BID 90 days pravastatin 40 mg PO BEDTIME pyridoxine (vitamin B6) 100 mg PO DAILY 90 days tacrolimus 0.03% topical Tobacco use date assessed: 08/31/23 Fall risk assessment: No Falls in past year Last assessed Fall Risk: 12/20/23 Dental Screening Dental Screen Date: 12/20/23 Did you have a dental visit in the last 12 months?: Yes Did you have a dental problem in the last 6 months where you did not have access to dental care?: No Was dental information given to patient?: Patient has dentist HPI 3 Month F/U HPI Details 73-year-old female with a history of hypercholesterolemia Viky anxiety disorder last seen in 09/01/2023. Patient is up-to-date with mammogram. Bone density. Due for colonoscopy. Review of the notes has seen Endocrinology for the osteoporosis and has requested for the bone density patient opted to hold off from any treatment. And so will do the bone density follow-up in 6 months. nasalacrimal duct flushing done Dr. Davila, will see Dr. Ward for the cataract surgery. [facility]LY [facility] Medical History (Updated 08/31/23 @ 15:23 by Julio Clemons MD) Osteoporosis Acute dermatitis Upper back pain on right side Right-sided chest pain Fall Impacted cerumen of left ear Bunion, left foot H. pylori infection Bunion, left foot History of migraine Breast asymmetry Hypercholesterolemia Osteopenia Kidney stone Spinal stenosis at L4-L5 level Colon cancer screening (Unknown) Surgical History H/O foot surgery History of esophagogastroduodenoscopy (EGD) History of foot surgery History of colonoscopy Hx of bilateral oophorectomy History of vocal cord polypectomy Hx of tonsillectomy Family History Father Myocardial infarct Family history of arthritis Mother Pneumonia Myocardial infarct Brother No problems noted. Sister Lung cancer Paternal Aunt Rheumatoid arthritis Social History Household Members: Children Household Members Other:: son-43 years old Housing: House Alcohol intake: current Alcohol intake frequency: holidays/special occasions only Alcohol type: wine Patient Tobacco Use Status: Never used Tobacco Tobacco use type: Cigarette e-Cigarette/Vaping Use: Never Used Second Hand Smoke Exposure: No Advance Directives Date on File: 07/16/09 service: No Current occupational status: retired Cognitive needs: No Hearing needs: No Vision needs: Yes Questionnaire PHQ-9 Over the last 2 weeks, how often have you been bothered by any of the following problems? 1. Little interest or pleasure in doing things: not at all 2. Feeling down, depressed, or hopeless: not at all 3. Trouble falling or staying asleep, or sleeping too much: not at all 4. Feeling tired or having little energy: not at all 5. Poor appetite or overeating: not at all 6. Feeling bad about yourself - or that you are a failure or have let yourself or your family down: not at all 7. Trouble concentrating on things, such as reading the newspaper or watching television: not at all 8. Moving or speaking so slowly that other people could have noticed. Or the opposite - being so fidgety or restless that you have been moving around a lot more than usual: not at all 9. Thoughts that you would be better off or of hurting yourself in some way: not at all Total score: 0 Depression Screening Interpretation: Negative Depression Screening Done: Yes 22805 - PHQ-9 Billing: Yes Source: Developed by Drs. Arsen Manuel, Lizet Ziegler, Ramon Franklin and colleagues, with an educational shelton from [employer]. Thrive Questionnaire Date Thrive assessed: 08/31/23 AUDIT C Alcohol Use Questionnaire (AUDIT-C) 1. How often do you have a drink containing alcohol?: Monthly or less 2. How many drinks containing alcohol do you have on a typical day when you are drinking?: 1 or 2 3. How often do you have six or more drinks on one occasion?: Never Total Score: 1 Score Reviewed/Action Taken: No CHIP-7 AMB Questionnaire CHIP-7 Date CHIP - 7 assessed: 08/31/23 Source: Developed by Drs. Arsen Manuel, Lizet Ziegler, Ramon Franklin and colleagues, with an educational shelton from [employer]. Physical exam (Primary Care) Vital Signs: Last Vital Signs Pulse 61 12/20/23 15:30 BP 110/62 12/20/23 15:30 Pulse Ox 98 12/20/23 15:30 Oxygen Delivery Method Room Air 12/20/23 15:30 BMI result Body Mass Index 22.3 Tobacco/Smoking Status: Tobacco use Status Tobacco use date assessed 08/31/23 12/20/23 15:36 Patient Tobacco Use Status Never used Tobacco 12/20/23 15:36 Tobacco use type Cigarette 12/20/23 15:36 e-Cigarette/Vaping Use Never Used 12/20/23 15:36 PHQ-9: PHQ-9 Score PHQ-9: Total score 0 12/20/23 15:36 Depression Screening Interpretation: Negative Thrive Assessment: Date of Thrive Assessment Date Thrive assessed 08/31/23 12/20/23 15:36 Const General: alert; No acute distress Eyes Conjunctivae: conjunctivae normal Resp Auscultation: clear to auscultation bilaterally Cardio Rate: regular rate Rhythm: regular rhythm GI Inspection: Yes normal to inspection Extrem General: Yes normal to inspection and No edema Assessment and Plan Assessment & Plan (1) Generalized anxiety disorder: Comment: Declined referral for counseling Code(s): F41.1 - Generalized anxiety disorder Plan: Continue with present medication take lorazepam as needed (2) Osteoporosis: Comment: January 2022 Code(s): M81.0 - Age-related osteoporosis without current pathological fracture Plan: Patient has met with the extension course counselor and patient has opted to just monitor the bone density. Declined medication (3) Hypercholesterolemia: Code(s): E78.00 - Pure hypercholesterolemia, unspecified Plan: Avoid fried foods, chicken skin, eggs, butter margarine, pastries and meat. Be it pork or beef they have a lot of cholesterol on pravastatin 40 mg at bedtime 12/2023 test Coding Level of Care Code Est Pt Level 4 (75511) Diagnoses Generalized anxiety disorder F41.1 Osteoporosis M81.0 Hypercholesterolemia E78.00
== END 2023-12-20 15:56 | disposition home or self-care (01) ==
PROVIDERS: PCP Internal Medicine; Visit Provider Internal Medicine
DX: F41.1 Generalized anxiety disorder (principal); M81.0 Age-related osteoporosis without current pathological fracture; E78.00 Pure hypercholesterolemia, unspecified
CPT/HCPCS: 99214

== ENCOUNTER 2024-05-16 11:36 | Outpatient (REF) | payer MEDICARE, OTHER, SELFPAY ==
--- NOTE | ~2024-05-16 | MM_ITS ---
EXAMINATION: BONE DENSITOMETRY CLINICAL INDICATION: Age-related osteoporosis without current pathological fracture. COMPARISON: Previous BD dated 05/12/2022 and baseline BD dated 01/25/2015. TECHNIQUE: Using a [employer] DXA System (software version: 13.1) manufactured by [employer], dual-energy x-ray absorptiometry was performed of the lumbar spine and left hip. The images are of good technical quality. Summary results are attached. FINDINGS: AP SPINE L1-L4 (excluding L3): The data of L1-L4 has been changed to exclude the L3 vertebral body, because artifact at this level may cause overestimation of lumbar spine density. Current: BMD 1.122 g/cm2, Z-score 1.7, T-score -0.4, normal, 2.7% increase from previous, 0.8% increase from baseline (<5% change is not significant). Prior: BMD 1.093 g/cm2. Baseline: BMD 1.113 g/cm2. LEFT FEMUR, NECK: Current: BMD 0.692 g/cm2, Z-score -0.3, T-score -2.5, osteoporosis. Prior: BMD 0.680 g/cm2. Baseline: BMD 0.649 g/cm2. LEFT FEMUR, TOTAL: Current: BMD 0.704 g/cm2, Z-score -0.4, T-score -2.4, osteopenia, 5.1% decrease from previous, 5.8% decrease from baseline (<5% change is not significant). Prior: BMD 0.742 g/cm2. Baseline: BMD 0.747 g/cm2. IDENTIFIED RISK FACTORS: Osteoporosis. Height loss. Secondary osteoporosis (early menopause). Hysterectomy. Bilateral oophorectomy. HISTORY OF FRACTURE: None listed. MEDICATIONS: Calcium supplement and/or multivitamin. Vitamin D. MM/XR DEXA axial skeleton IMPRESSION: 1. DIAGNOSIS: Osteoporosis based on the lowest T-score value of -2.5 in the femoral neck applying World Health Organization criteria. 2. 10-YEAR FRACTURE RISK PREDICTION, FRAX: According to the guidelines, FRAX calculation should only be performed on patients in the osteopenia bone density category. Therefore, FRAX was not performed on this patient. 3. Treatment Recommendations: NOF guidelines recommend consideration for treatment in postmenopausal women and men age 50 and older presenting with the following: -A hip or vertebral (clinical or morphometric) fracture. -T-score less than or equal to -2.5 at the femoral neck or spine after appropriate evaluation to exclude secondary causes. -Low bone mass at the hip or spine and a 10-year fracture probability by FRAX of greater than or equal to 3% for hip fracture or greater than or equal to 20% for major osteoporotic fracture based on the [place] adapted WHO algorithm. 4. Other Recommendations: All treatment decisions require clinical judgment and consideration of individual patient factors, including patient preferences, comorbidities, previous drug use, risk factors not captured in the FRAX model (e.g. frailty, falls, vitamin D deficiency, increased bone turnover, interval significant decline in bone density) and possible under or overestimation of fracture risk by FRAX. Additional medical evaluation for secondary cause of low bone mineral density may be appropriate. FUTURE SCAN RECOMMENDATION: People with diagnosed cases of osteoporosis or at high risk for fracture should have regular bone mineral density tests. For patients eligible for Medicare, routine testing is allowed once every 2 years. The testing frequency can be increased to one year for patients who have rapidly progressing disease, those who are receiving or discontinuing medical therapy to restore bone mass, or have additional risk factors. Electronically signed by: Tato Ly MD 05/17/2024 02:46 PM ALAN HEADLEY
--- OUTSIDE RECORDS SUMMARY | 2024-05-23 13:28 | XMS_ITS ---
Author Name [facility] Organization Unknown History of Medication Use Medication Directions Dispensed Refills Start Date End Date Stat [facility] D3 125 MCG (5000 UT) capsule TAKE 1 CAPSULE BY MOUTH EVERY DAY 01/30/2023 active Problems Problem Status Onset Date Problem Type Date of Resolution Source Osteoarthritis of ankle and foot, right active EncounterDiagnosisAct CCT
== END 2024-05-16 11:37 | disposition home or self-care (01) ==
LOC: HO.MAMMO 11:36
PROVIDERS: PCP Internal Medicine; Visit Provider Internal Medicine Endocrinology, Diabetes & Metabolism
DX: M81.0 Age-related osteoporosis without current pathological fracture (principal)
CPT/HCPCS: 77080

== ENCOUNTER 2024-06-08 14:32 | Outpatient (AMB) | payer MEDICARE, OTHER, SELFPAY ==
[2024-06-08 14:33] VITALS: BP 120/68; PULSE 67; BMI 23.0
--- NOTE | 2024-06-08 14:33 | A.OFFVIS_ITS ---
Vital Signs 06/08/24 14:33 Height 5 ft 1 in Weight 121 lb 11.123 oz BMI 23.0 BP 120/68 Blood Pressure Location Lt brachial Position Sitting Pulse 67 Pulse Source Pulse Oximeter Intake Visit Reasons: osteoporosis Intake Note: Patient present today for osteoporosis follow up visit. Plastic Cutter Required: No Accompanied by: Self / Same As Patient Allergies doxycycline Allergy (Unknown, Verified 06/08/24 14:36) Foaming of the mouth simvastatin [SIMVASTATIN] Allergy (Unknown, Verified 06/08/24 14:36) LEG PAIN, muscle aches Sulfa (Sulfonamide Antibiotics) Allergy (Unknown, Verified 06/08/24 14:36) Burning rash on body sulfamethoxazole [From BACTRIM] Allergy (Unknown, Verified 06/08/24 14:36) RASH trimethoprim [From BACTRIM] Allergy (Unknown, Verified 06/08/24 14:36) RASH Medication List - Last Reconciled 06/08/24 by Arsen Duenas MD alclometasone 0.05% 1 appl topical BID ascorbic acid (vitamin C) 500 mg PO DAILY [id number]-kpxhryqqtlrrw-uwjvfbbe 250-250-65 mg (Excedrin Migraine) 1 tab PO Q4-6H PRN cholecalciferol (vitamin D3) 25 mcg PO DAILY 90 days ferrous sulfate 325 mg PO DAILY 90 days fluocinolone 0.025% 1 appl topical BID fluticasone propionate 50 mcg/actuation (Flonase Allergy Relief) 2 sprays intranasal DAILY lorazepam 0.5 mg PO DAILY PRN multivitamin 1 tab PO DAILY multivitamin with minerals (Hair,Skin and Nails tablet) 1 tab PO DAILY naproxen 500 mg PO BID PRN omeprazole 20 mg PO BID 90 days pravastatin 40 mg PO BEDTIME pyridoxine (vitamin B6) 100 mg PO DAILY 90 days tacrolimus 0.03% topical HPI Comments Details: 74 YO F withis seen in consultation at the request of PCP for Osteoporosis. First diagnosed in recently . Not Received treatment in the past with [], from [] to []. Tolerated treatment well without complication. No history of pathologic fracture or ONJ. Has several servings of dietary calcium per day in the form of cheese, milk and ice cream . Not Takes Calcium supplement daily in divided doses. Takes 1000 IU of Vitamin D daily. takes PPI occasionally , -anticoagulant,- antiepileptic or -glucocorticoid medication. Does weight bearing exercise once 1 days per week in the form of dancing and walking . 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 Not hot flashes Has history of Kidney stones: Denies family history of Osteoporosis or hip fracture. UTD on dental cleanings and sees dentist every 6 months. No planned upcoming dental work or extractions. DXA dated 05/12/22:EXAMINATION: BONE DENSITOMETRY CLINICAL INDICATION: Other specified disorders of bone density and structure, unspecified. COMPARISON: Previous BD dated 02/02/2019 and baseline BD dated 01/25/2015. TECHNIQUE: Using a [employer] DXA System (software version: 13.1) manufactured by [employer], dual-energy x-ray absorptiometry was performed of the lumbar spine and left hip. The images are of good technical quality. Summary results are attached. FINDINGS: AP SPINE L1-L4 (excluding L3):? The data of L1-L4 has been changed to exclude the L3 vertebral body because there is metallic artifact at right anterior vertebral body from overlying navel piercing. Current: BMD 1.093 g/cm2, Z-score 1.4, T-score -0.6, normal, 0.6% increase from previous, 1.8% decrease from baseline (<5% change is not significant). Prior: BMD 1.109 g/cm2. Baseline: BMD 1.141 g/cm2. LEFT FEMUR, NECK: Current: BMD 0.680 g/cm2, Z-score -0.6, T-score -2.6, osteoporosis. Prior: BMD 0.662 g/cm2. Baseline: BMD 0.649 g/cm2. LEFT FEMUR, TOTAL: Current: BMD 0.742 g/cm2, Z-score -0.3, T-score -2.1, osteopenia, 1.6% decrease from previous, 0.7% decrease from baseline (<5% change is not significant). Prior: BMD 0.754 g/cm2. Baseline: BMD 0.747 g/cm2. IDENTIFIED RISK FACTORS: Bilateral oophorectomy, menopause, hysterectomy, secondary osteoporosis. HISTORY OF FRACTURE: None listed. MEDICATIONS: Calcium, vitamin D. MM/XR DEXA axial skeleton IMPRESSION: 1. DIAGNOSIS: Osteoporosis based on the lowest T-score value of -2.6 in the femoral neck applying World Health Organization criteria.? Labs: Secondary workup is negative. Repeat DEXA showed stable bone density with a lowest bone density in the left femoral neck of -2.5 PFSH Medical History (Updated 08/31/23 @ 15:23 by Julio Clemons MD) Osteoporosis Acute dermatitis Upper back pain on right side Right-sided chest pain Fall Impacted cerumen of left ear Bunion, left foot H. pylori infection Bunion, left foot History of migraine Breast asymmetry Hypercholesterolemia Osteopenia Kidney stone Spinal stenosis at L4-L5 level Colon cancer screening (Unknown) Surgical History H/O foot surgery History of esophagogastroduodenoscopy (EGD) History of foot surgery History of colonoscopy Hx of bilateral oophorectomy History of vocal cord polypectomy Hx of tonsillectomy Family History Father Myocardial infarct Family history of arthritis Mother Pneumonia Myocardial infarct Brother No problems noted. Sister Lung cancer Paternal Aunt Rheumatoid arthritis Social History Household Members: Children Household Members Other:: son-43 years old Housing: House Alcohol intake: current Alcohol intake frequency: holidays/special occasions only Alcohol type: wine Patient Tobacco Use Status: Never used Tobacco Tobacco use type: Cigarette e-Cigarette/Vaping Use: Never Used Second Hand Smoke Exposure: No Advance Directives Date on File: 07/16/09 service: No Current occupational status: retired Cognitive needs: No Hearing needs: No Vision needs: Yes Assessment & Plan Assessment & Plan (1) Osteoporosis: Comment: January 2022 Code(s): M81.0 - Age-related osteoporosis without current pathological fracture Category: Medical Plan: This is a 72-year-old white female with a history of osteoporosis . Secondary workup is negative. Repeat DEXA showed stable bone density but borderline osteoporosis in the left femoral neck After discussion of with the patient regarding pharmacologic therapy including oral intravenous bisphosphonate, patient is going to think about whether to go on pharmacologic therapy with alendronate. If she decides to start the alendronate, would give a course of alendronate for about 1-2 years time and follow up bone turnover marker and repeat bone density in 2 years. I would then see her back in endocrine clinic for follow-up. If she decides not to start the alendronate, she can follow up with the primary care provider can repeat DEXA bone density in 2 years time initiate alendronate if further decrease in bone density Coding Level of Care Code Est Pt Level 3 (56333) Diagnoses Osteoporosis M81.0
== END 2024-06-08 15:02 | disposition home or self-care (01) ==
PROVIDERS: PCP Internal Medicine; Visit Provider Internal Medicine Endocrinology, Diabetes & Metabolism
DX: M81.0 Age-related osteoporosis without current pathological fracture (principal)
CPT/HCPCS: 99213

== ENCOUNTER → 2024-06-08 14:32 | Outpatient (BNVA) | payer MEDICARE, OTHER, SELFPAY | PROVIDERS: PCP Internal Medicine; Visit Provider Internal Medicine Endocrinology, Diabetes & Metabolism | DX: M81.0 Age-related osteoporosis without current pathological fracture (principal) | CPT/HCPCS: 99212 ==

== ENCOUNTER 2024-08-17 10:02 | Outpatient (AMB) | payer MEDICARE, OTHER, SELFPAY ==
--- NOTE | 2024-08-17 10:13 | AM.OFFWIN_ITS ---
Intake Vital Signs 08/17/24 10:15 Height 5 ft 1 in Weight 121 lb BMI 22.9 BP 110/70 Blood Pressure Location Lt brachial Position Sitting Pulse 79 Pulse Source Pulse Oximeter Temp 98.1 F Temp Source Oral Pulse Oximetry (%) 97 Oxygen Delivery Method Room Air Intake Visit Reasons: EP-flu [id number] Intake Note: pt is here for c/o sore throat, head congestion, difficulty breathing, fevers Patient Tobacco Use Status: Never used Tobacco Allergies doxycycline Allergy (Unknown, Verified 08/17/24 10:14) Foaming of the mouth simvastatin [SIMVASTATIN] Allergy (Unknown, Verified 08/17/24 10:14) LEG PAIN, muscle aches Sulfa (Sulfonamide Antibiotics) Allergy (Unknown, Verified 08/17/24 10:14) Burning rash on body sulfamethoxazole [From BACTRIM] Allergy (Unknown, Verified 08/17/24 10:14) RASH trimethoprim [From BACTRIM] Allergy (Unknown, Verified 08/17/24 10:14) RASH Do you need a note to return to daycare/school/sports/work: No HPI HPI Comments History of Present Illness Details History - The patient is a 74-year-old female pr esenting with symptoms of a viral-like illness embodying cough, sore throat, and general malaise appearing approximately a week ago. - She reports significant discomfort whe n swallowing due to the sore throat, compounded by extensive fatigue and a dry cough. - Feverishness is pronounced nocturnally , initially misreported but later confirmed with no significant fluctuation, persisting for several days. - A past history of recurrent Streptococ hollie Pharyngitis is noted. - The patient has no history of chronic respiratory conditions. - Active nasal congestion contributes to frequent headaches. Physical Exam General: Cooperative, healthy appearing, comfortable and no acute distress Orientation/consciousness: Patient oriented x3 Limitations: No limitations Head: Normal to inspection Ears: Hearing grossly normal bilaterally, external ears normal and TM's normal bilaterally Nose: Stuffy nose present, Normal nares present and No nasal discharge present Face and sinus: Normal facial exam and Yes sinuses nontender Mouth: Normal oral and palatal mucosa present and moist mucous membranes Throat: Yes tonsils normal, Yes uvula midline. Posterior oropharynx erythema, no exudates Eyes: Appearance normal, both eyes and all related structures Neck: Normal visual inspection Respiratory: Clear to auscultation bilaterally. Normal respiratory effort, able to speak in complete sentences, Actively coughing, no respiratory distress, not tachypneic, no tripod positioning and no use of accessory muscles Cardiovascular: Regular rate and rhythm. Normal S1 and S2 Skin: No rashes or lesions noted Neuro: Patient oriented x3 Extremities: Normal to inspection and Yes no clubbing, cyanosis or edema PFSH Medical History (Updated 08/17/24 @ 10:43 by Aliya Heredia PA-C) Osteoporosis Acute dermatitis Upper back pain on right side Right-sided chest pain Fall Impacted cerumen of left ear Bunion, left foot H. pylori infection Bunion, left foot History of migraine Breast asymmetry Hypercholesterolemia Osteopenia Kidney stone Spinal stenosis at L4-L5 level Colon cancer screening (Unknown) Surgical History H/O foot surgery History of esophagogastroduodenoscopy (EGD) History of foot surgery History of colonoscopy Hx of bilateral oophorectomy History of vocal cord polypectomy Hx of tonsillectomy Family History Father Myocardial infarct Family history of arthritis Mother Pneumonia Myocardial infarct Brother No problems noted. Sister Lung cancer Paternal Aunt Rheumatoid arthritis Social History Household Members: Children Household Members Other:: son-43 years old Housing: House Alcohol intake: current Alcohol intake frequency: holidays/special occasions only Alcohol type: wine Patient Tobacco Use Status: Never used Tobacco Tobacco use type: Cigarette e-Cigarette/Vaping Use: Never Used Second Hand Smoke Exposure: No Advance Directives Date on File: 07/16/09 service: No Current occupational status: retired Cognitive needs: No Hearing needs: No Vision needs: Yes Review of Systems Const All systems reviewed & are unremarkable except as noted in HPI and below Physical Exam Vital Signs: Last Vital Signs Temp 98.1 F 08/17/24 10:15 Pulse 79 08/17/24 10:15 BP 110/70 08/17/24 10:15 Pulse Ox 94 08/17/24 10:15 Oxygen Delivery Method Room Air 08/17/24 10:15 BMI result Body Mass Index 22.9 Assessment & Plan Assessment & Plan (1) Acute viral syndrome: Code(s): B34.9 - Viral infection, unspecified Plan: VSS, pt well appearing and PE unremarkable. Considering the likely diagnosis of an Acute Viral Upper Respiratory Infection, symptomatic management was advised, including rest and hydration. Oseltamivir Tamiflu was not recommended due to symptom duration. Instructions were given on using Ibuprofen for throat pain (though it is improving) and Benzonatate for cough suppression. Proper use of Fluticasone nasal spray was explained for better sinus penetration. The patient should monitor for changes in symptoms, especially respiratory concerns, and seek medical attention if conditions worsen. Diagnostic results will be confirmed and communicated promptly to manage further. Patient was informed and verbally consented to the use of an ambient scribe for clinic note documentation during this visit Orders: Orders AMB Rapid Strep Screen Today Z13.9 - Encounter for screening, unspecified SARS-CoV2/FLU/RSV Today R09.89 - Other specified symptoms and signs involving the circulatory and respiratory systems Medications: New benzonatate 200 mg PO BEDTIME PRN 10 caps 0RF cough Coding Level of Care Code Est Pt Level 3 (28149) Diagnoses Acute viral syndrome B34.9
[2024-08-17 10:15] VITALS: BP 110/70; PULSE 79; TEMP 36.7; O2SAT 97; BMI 22.9
--- OUTSIDE RECORDS SUMMARY | 2024-08-17 11:41 | XMS_ITS | Clinical Summary ---
Author Organization [facility] Address [address] [place] [address] Care Team Providers Care Air Table Operator Name Role Phone Unavailable Primary Care Provider Unavailabl e Medications Medication Sig Dispensed Refills Start Date End Date Status [facility] D3 125 MCG (5000 UT) capsuleIndications:O steoarthritis of ankle and foot, right TAKE 1 CAPSULE BY MOUTH EVERY DAY 90 capsule 1 01/28/2023 Active Social History Tobacco Use Types Packs/Day Years Used Date Smoking Tobacco: Never Assessed Sex and Gender Information Value Date Recorded Sex Assigned at Not on file Gender Identity Not on file Sexual Orientation Not on file Plan of Treatment Health Maintenance Due Date Last Done Comments Hepatitis C Virus Screening 1950 DTaP/Tdap/Td Vaccines (1 - Tdap) 01/19/1968 Pneumococcal Vaccines 50+ (1 of 1 - PCV) 1999 Zoster (Shingles) Vaccine (1 of 2) 1999 RSV Vaccine 60 years and old er and Patients (1 - 1-dose 75+ series) 01/19/2024 COVID-19 Vaccine ( - 2023-2 5 season) 2024 Hepatitis B Vaccines Aged Out No long er eligible based on patient's age to complete this topic
--- OUTSIDE RECORDS SUMMARY | 2024-08-17 11:41 | XMS_ITS | Encounter Summary ---
Author Organization [facility] Address [address] [place] [id number] Care Team Providers Care Machine Steak Tenderizer Name Role Phone Unavailable Primary Care Provider Unavailabl e Encounter Details Date Type Department Care Team (Late st Contact Info) Description 03/26/2021 Erroneous Encounter [facility] CONVERSION DEPT [address] [place] [phone] Maciel Ellis MD [address] [place] [id number] Social History Tobacco Use Types Packs/Day Years Used Date Smoking Tobacco: Never Assessed Sex and Gender Information Value Date Recorded Sex Assigned at Not on file Gender Identity Not on file Sexual Orientation Not on file documented as of this encounter Plan of Treatment Not on file documented as of this encounter Visit Diagnoses Not on filedocumented in this encounter
== END 2024-08-17 10:51 | disposition home or self-care (01) ==
PROVIDERS: PCP Internal Medicine; Visit Provider Physician Assistant
DX: Z13.9 Encounter for screening, unspecified (principal); B34.9 Viral infection, unspecified

== ENCOUNTER 2024-08-17 10:02 | Outpatient (REF) | payer MEDICARE, OTHER, SELFPAY ==
--- OUTSIDE RECORDS SUMMARY | 2024-08-17 12:30 | XMS_ITS | Clinical Summary ---
Author Organization [facility] Address [address] [place] [address] Care Team Providers Care Upsetter Helper Name Role Phone Unavailable Primary Care Provider [...]
--- OUTSIDE RECORDS SUMMARY | 2024-08-17 12:30 | XMS_ITS | Encounter Summary ---
Author Organization [facility] Address [address] [place] [address] Care Team Providers Care Food Safety Technician Name Role Phone Unavailable Primary Care Provider Unavailabl e Encounter Details Date Type Department Care Team (Late st Contact Info) Description 03/26/2021 Erroneous Encounter [facility] CONVERSION DEPT [address] [place] [id number] Maciel Ellis MD [address] [place] [id number] Social History Tobacco Use Types Packs/Day Years [...]
[2024-08-17 16:14] LABS: Influenza A PCR NEGATIVE (Negative); Influenza B PCR NEGATIVE (Negative); Resp Syncy Virus RNA Qual PCR NEGATIVE (Negative); SARS COV2 PCR INHOUSE NEGATIVE (Negative)
== END 2024-08-17 10:03 | disposition home or self-care (01) ==
LOC: HO.LAB 10:02
PROVIDERS: PCP Internal Medicine; Visit Provider Physician Assistant
DX: B34.9 Viral infection, unspecified (principal); R09.89 Other specified symptoms and signs involving the circulatory and respiratory systems; R05.8 Other specified cough
CPT/HCPCS: 0241U; 87880; 99212

== ENCOUNTER 2024-08-22 08:55 | Outpatient (AMB) | payer MEDICARE, OTHER, SELFPAY ==
--- NOTE | 2024-08-22 08:56 | A.OFFPC_ITS ---
Intake Visit Reasons: Cold Symptoms Allergies doxycycline Allergy (Unknown, Verified 08/22/24 08:56) Foaming of the mouth simvastatin [SIMVASTATIN] Allergy (Unknown, Verified 08/22/24 08:56) LEG PAIN, muscle aches Sulfa (Sulfonamide Antibiotics) Allergy (Unknown, Verified 08/22/24 08:56) Burning rash on body sulfamethoxazole [From BACTRIM] Allergy (Unknown, Verified 08/22/24 08:56) RASH trimethoprim [From BACTRIM] Allergy (Unknown, Verified 08/22/24 08:56) RASH Medication List - Last Reconciled 08/22/24 by Julio Clemons MD alclometasone 0.05% 1 appl topical BID ascorbic acid (vitamin C) 500 mg PO DAILY uxsgdfa-bbfncnzpksovp-vozmruan 250-250-65 mg (Excedrin Migraine) 1 tab PO Q4-6H PRN azithromycin (Zithromax) For 250 mg dose pack: take 500 mg today (day 1), then 250 mg for 4 days (days 2-5) PO benzonatate 200 mg PO BEDTIME PRN cholecalciferol (vitamin D3) 25 mcg PO DAILY 90 days ferrous sulfate 325 mg PO DAILY 90 days fluocinolone 0.025% 1 appl topical BID fluticasone propionate 50 mcg/actuation (Flonase Allergy Relief) 2 sprays intranasal DAILY lorazepam 0.5 mg PO DAILY PRN multivitamin with minerals (Hair,Skin and Nails tablet) 1 tab PO DAILY naproxen 500 mg PO BID PRN omeprazole 20 mg PO BID 90 days pravastatin 40 mg PO BEDTIME pyridoxine (vitamin B6) 100 mg PO DAILY 90 days tacrolimus 0.03% topical Tobacco use date assessed: 08/22/24 Fall risk assessment: No Falls in past year Last assessed Fall Risk: 08/22/24 Dental Screening Dental Screen Date: 08/22/24 Did you have a dental visit in the last 12 months?: Yes Did you have a dental problem in the last 6 months where you did not have access to dental care?: No Was dental information given to patient?: Patient has dentist HPI Cold Symptoms HPI Details sick since August 12, sore throat, fevers, cough, chills, urgent center visit, presently fevers, sore throat still but a little, congested, diarrhea PFSH Medical History (Updated 08/22/24 @ 12:25 by Julio Clemons MD) Osteoporosis Acute dermatitis Upper back pain on right side Right-sided chest pain Fall Impacted cerumen of left ear Bunion, left foot H. pylori infection Bunion, left foot History of migraine Breast asymmetry Hypercholesterolemia Osteopenia Kidney stone Spinal stenosis at L4-L5 level Colon cancer screening (Unknown) Surgical History H/O foot surgery History of esophagogastroduodenoscopy (EGD) History of foot surgery History of colonoscopy Hx of bilateral oophorectomy History of vocal cord polypectomy Hx of tonsillectomy Family History Father Myocardial infarct Family history of arthritis Mother Pneumonia Myocardial infarct Brother No problems noted. Sister Lung cancer Paternal Aunt Rheumatoid arthritis Social History Household Members: Children Household Members Other:: son-43 years old Housing: House Alcohol intake: current Alcohol intake frequency: holidays/special occasions only Alcohol type: wine Patient Tobacco Use Status: Never used Tobacco Tobacco use type: Cigarette e-Cigarette/Vaping Use: Never Used Second Hand Smoke Exposure: No Advance Directives Date on File: 07/16/09 service: No Current occupational status: retired Cognitive needs: No Hearing needs: No Vision needs: Yes Questionnaire Thrive Questionnaire Date Thrive assessed: 08/22/24 I am a: Patient What is your living situation today?: I have a steady place to live Within the past 12 months, did the food you bought not last and you didn't have the money to get more?: Never true Within the past 12 months, did you worry whether your food would run out before you got money to buy more?: Never true Do you have trouble paying for medicines?: No Do you have trouble getting transportation to medical appointments?: No Do you have trouble paying your heating and electricity bill?: No Do you have trouble taking care of your child, family member or friend?: No Do you have trouble with day-to-day activities such as bathing, preparing meals, shopping, managing finances, etc.?: No Are you currently unemployed and looking for a job?: No Are you interested in more education?: No Currently or been in a relationship where the following occur: No concerns reported THRIVE Score: 0 AUDIT C Alcohol Use Questionnaire (AUDIT-C) 1. How often do you have a drink containing alcohol?: Monthly or less 2. How many drinks containing alcohol do you have on a typical day when you are drinking?: 1 or 2 3. How often do you have six or more drinks on one occasion?: Never Total Score: 1 Score Reviewed/Action Taken: No CHIP-7 AMB Questionnaire CHIP-7 Date CHIP - 7 assessed: 08/22/24 Feeling nervous, anxious, or on edge: 0 = Not at all Not being able to stop or control worryin = Not at all Worrying too much about different things: 0 = Not at all Trouble relaxin = Not at all Being so restless that it is hard to sit still: 0 = Not at all Becoming easily annoyed or irritable: 0 = Not at all Feeling afraid as if something awful might happen: 0 = Not at all Total CHIP-7 score (0-4 normal; 5-9 mild; 10-14 moderate; 15-21 severe): 0 Source: Developed by Drs. Arsen Manuel, Lizet Ziegler, Ramon Franklin and colleagues, with an educational shelton from [employer]. Physical exam (Primary Care) Tobacco/Smoking Status: Tobacco use Status Tobacco use date assessed 08/22/24 08/22/24 08:57 Patient Tobacco Use Status Never used Tobacco 08/22/24 08:57 Tobacco use type Cigarette 08/22/24 08:57 e-Cigarette/Vaping Use Never Used 08/22/24 08:57 Thrive Assessment: Date of Thrive Assessment Date Thrive assessed 08/22/24 08/22/24 08:57 Currently or been in a relationship where the following occur: No concerns reported Telehealth Telehealth Location of provider rendering services: practice address Location of patient: address on file Patient Identification confirmed using: Name, : Yes Telehealth method: voice only Patient verbally consented to treatment: Yes Patient verbally consented to billing insurance company: Yes Patient informed of any privacy concerns related to visit: Yes Minutes spent on Phone/Video with Pt.: 15 Coding Level of Care Code Tele Est Pt Level 3 (91759) Diagnoses Nasal congestion R09.81 Assessment & Plan Assessment & Plan (1) Nasal congestion: Code(s): R09.81 - Nasal congestion Category: Medical Plan History of Present Illness The patient is a 24-year-old female presenting with persistent sore throat, nasal congestion, and fevers. Initial symptoms began on August 12, 2024, marked by severe throat discomfort, fever, cough, nasal blockage, and headaches, which led to difficulty swallowing and a decision against visiting the ER. On August 17, she was seen at an urgent center where strep throat, COVID-19, RSV, and flu tests were negative. She was diagnosed with a viral infection, prescribed a cough medication, but noted minimal symptom relief. Her condition worsened with laryn gitis impacting communication and further reporting of morning fevers, nose bleeding, and diarrhea. Multiple attempts to seek medical advice were complicated by barriers to care, and lcuf-fam-xkbywri medications proved ineffective, prompting cessation. Review of Systems - Respiratory: Reports shortness of breath, cough. - Gastrointestinal: Reports diarrhea. - ENT: Reports sore throat, nasal congestion, laryngitis, and bloody nose. - General: Reports fever, chills, headache. - Skin: Reports no specific skin complaints. Plan To address the persistent symptoms, I have advised a course of Azithromycin given the possibility of secondary bacterial infection. Probiotics were recommended to manage diarrhea and support gut brandy. The patient should continue with adequate fluid intake, especially water, and has been advised against ineffective fcbd-oro-owppfoi remedies. A suggestion was also made to utilize the patient portal for communication ease, considering the communication challenges highlighted. Patient was informed and verbally consented to the use of an ambient scribe for clinic note documentation during this visit. Discussion Notes I discussed with the patient the likelihood of a bacterial component contributing to her prolonged symptoms, hence the prescription of Azithromycin. We also considered potential gastrointestinal side effects of antibiotics, thus recommending probiotics. Importance was placed on hydration and effective use of healthcare communication systems, such as the patient portal, to facilitate future interactions. The patient was agreeable to the treatment plan and expressed understanding and willingness to comply with the outlined instructions. Patient Instructions - Begin prescribed course of Azithromycin (Zithromax Z-Lobito) for potential bact erial infection. - Take probiotics to manage and prevent further gastrointestinal issues. - Maintain high fluid intake with a focus on water. - Avoid further use of ineffective iruc-neq-heyqwfe medications. - Utilize the patient portal for communication with the office. - Report any worsening symptoms or new developments immediately. Medications: New azithromycin (Zithromax) For 250 mg dose pack: take 500 mg today (day 1), then 250 mg for 4 days (days 2-5) PO 6 tabs 0RF R09.81 - Nasal congestion Lactobacillus rhamnosus GG (Culturelle) 1 cap PO DAILY 20 caps 0RF R09.81 - Nasal congestion
--- OUTSIDE RECORDS SUMMARY | 2024-08-22 09:49 | XMS_ITS | Encounter Summary ---
Author Organization [facility] Address [address] [place] [address] Care Team Providers Care Legal Recruiter Name Role Phone Unavailable Primary Care Provider Unavailabl e Encounter Details Date Type Department Care Team (Late st Contact Info) Description 03/26/2021 Erroneous Encounter [facility] CONVERSION DEPT [address] [place] [phone] Maciel Ellis MD [address] [place] [address] Social History Tobacco Use Types Packs/Day Years [...]
--- OUTSIDE RECORDS SUMMARY | 2024-08-22 09:49 | XMS_ITS | Clinical Summary ---
Author Organization [facility] Address [address] [place] [address] Care Team Providers Care Roll Forming Machine Operator Name Role Phone Unavailable Primary Care [...]
== END 2024-08-22 14:10 | disposition home or self-care (01) ==
PROVIDERS: PCP Internal Medicine; Visit Provider Internal Medicine
DX: R09.81 Nasal congestion (principal)

== ENCOUNTER 2024-10-17 14:45 | Outpatient (REF) | payer MEDICARE, OTHER, SELFPAY ==
[2024-10-17 15:04] LABS: MANUAL DIFF FLAG NO
[2024-10-17 15:11] LABS: Basophils Absolute Auto 0.1 X10*3/uL (0.0-0.2); Eosinophils Percent Auto 0.8 % (0-4); Hemoglobin 14.6 g/dl (12.0-16.0); Imm Gran Abs Auto 0.01 X10*3/uL (0.00-0.03); Imm Gran Pct Auto 0.2 % (0.0-0.4); Lymphocytes Absolute Auto 1.7 X10*3/uL (1.2-4.9); Lymphocytes Percent Auto 35.5 % (20-40); Mean Corpuscular HGB Conc 34.8 g/dl (31.0-35.0); Mean Corpuscular Hemoglobin 32.3 pg (27.0-33.0); Mean Corpuscular Volume 92.9 fL (80.0-98.0); Mean Platelet Volume 8.4 fL (9.4-12.3); Monocytes Absolute Auto 0.5 X10*3/uL (0.1-1.2); Monocytes Percent Auto 9.5 % (2-11); Neutrophils Absolute Auto 2.6 x10*3/uL (2.0-8.3); Platelet Count 235 X10*3/uL (160-400); Red Blood Count 4.52 X10*6/uL (4.20-5.50); Red Cell Distribution Width 12.6 % (11.0-16.0); Retic HGB Equivalent 35.9 pg (30.0-35.0); Reticulocyte Percent 1.1 % (0.5-1.8); White Blood Count 4.9 X10*3/uL (4.8-10.8)
--- OUTSIDE RECORDS SUMMARY | 2024-10-17 15:59 | XMS_ITS | Encounter Summary ---
Author Organization [facility] Address [address] [place] [address] Care Team Providers Care Rail Manager Name Role Phone Unavailable Primary Care Provider Unavailabl e Encounter Details Date Type Department Care Team (Late st Contact Info) Description 03/26/2021 Erroneous Encounter [facility] CONVERSION DEPT [address] [place] [phone] Maciel Ellis MD [address] [place] [address] Social History Tobacco Use Types Packs/Day Years Used Date Smoking Tobacco: Never Assessed Comments Unknown Sex and Gender Information Value Date Recorded Sex Assigned at Not on file Legal Sex Female 10:13 AM EDT Gender Identity Not on file Sexual Orientation Not on file documented as of this encounter Plan of Treatment Not on file documented as of this encounter Visit Diagnoses Not on filedocumented in this encounter
--- OUTSIDE RECORDS SUMMARY | 2024-10-17 15:59 | XMS_ITS | Clinical Summary ---
Author Organization [facility] Address [address] [place] [address] Care Team Providers Care Apprentice/Lineman Name Role Phone Unavailable Primary Care Provider Unavailabl e Medications CVS D3 125 MCG (5000 UT) capsuleIndicati ons:Osteoarthri tis of ankle and foot, right TAKE 1 [...]
[2024-10-17 16:12] LABS: Alanine Aminotransferase 17 U/L (0-31); Albumin Level 4.2 g/dL (3.5-5.0); Anion Gap 8 (12-20); Aspartate Amino Transferase 35 U/L (5-31); Bilirubin Total 0.7 mg/dL (0.0-1.0); Blood Urea Nitrogen 17 mg/dL (9-16); Calcium 9.4 mg/dL (8.4-10.2); Carbon Dioxide 30 mmol/L (22-29); Chloride 106 mmol/L (96-108); Cholesterol 194 mg/dL (<200); Estimated Glomerular Filt Rate > 60; Ferritin 48 ng/mL (10-250); Glucose Random 88 mg/dL (60-115); HDL Cholesterol 70 mg/dL (>40); Iron 107 mcg/dL (30-160); LDL Cholesterol Calculated 110 mg/dL (<100); Magnesium 2.1 mg/dL (1.6-2.6); Percent Iron Saturation 34 % (15-50); Potassium 4.4 mmol/L (3.3-5.1); Sodium 140 mmol/L (135-145); Thyroid Stimulating Hormone 1.51 uIU/mL (0.32-4.0); Total Iron Binding Capacity 317 mcg/dL (228-428); Total Protein 7.3 g/dL (6.5-8.0); Triglycerides 74 mg/dL (<150); Unsaturated Iron Binding 210 ug/dL
[2024-10-17 16:15] LABS: Folate 12.5 ng/mL (> or = 4.0); Vitamin B12 492 pg/mL (200-900)
[2024-10-17 16:29] LABS: Appearance Urine Clear; Color Urine Yellow; Glucose Urine UA Negative (Negative); Leukocyte Esterase Urine Trace (Negative); Nitrite Urine Negative (Negative); UMIC TRIGGER UACC YES; Urine Blood Negative (Negative); Urine Ketones Negative (Negative); Urine Protein Negative (Neg-Trace)
[2024-10-17 16:32] LABS: Bacteria Urine None Seen (None Seen); Hyaline Casts Urine 0-2 /LPF (0-2); RBC Urine 0-2 /HPF (0-2); Squamous Epithelial Cell Urine 0-2 /HPF (0-2); WBC Urine 0-5 /HPF (0-5)
[2024-10-17 17:29] LABS: Alkaline Phosphatase 88 U/L (39-117)
== END 2024-10-17 14:46 | disposition home or self-care (01) ==
LOC: HO.LAB 14:45
PROVIDERS: PCP Internal Medicine; Visit Provider Internal Medicine
DX: D50.8 Other iron deficiency anemias (principal); E78.00 Pure hypercholesterolemia, unspecified
CPT/HCPCS: 36415; 80053; 80061; 81001; 82306; 82607; 82728; 82746; 83540; 83735; 84439; 84443; 85025; 85045

== ENCOUNTER 2024-10-24 15:36 | Outpatient (AMB) | payer MEDICARE, OTHER, SELFPAY ==
--- NOTE | 2024-10-24 15:37 | A.OFFPC_ITS ---
Vital Signs 10/24/24 15:39 Height 5 ft 1 in Weight 120 lb 6 oz BMI 22.7 BP 120/66 Blood Pressure Location Lt brachial Position Sitting Pulse 71 Pulse Source Pulse Oximeter Temp 97.5 F Temp Source Temporal Artery Scan Pulse Oximetry (%) 97 Oxygen Delivery Method Room Air Intake Visit Reasons: Rt 12/08 & Lt 12/12 cataract surgery - see comm Intake Note: Patient is here for a Pre-op for Cataract surgery scheduled with Dr Shima Ward on Rt 11/28/24 and Lt 12/12/24. Cobol Programmer Required: No Research Animal Facility Supervisor: Not Required per policy Accompanied by: Self / Same As Patient Allergies doxycycline Allergy (Unknown, Verified 10/24/24 15:39) Foaming of the mouth simvastatin [SIMVASTATIN] Allergy (Unknown, Verified 10/24/24 15:39) LEG PAIN, muscle aches Sulfa (Sulfonamide Antibiotics) Allergy (Unknown, Verified 10/24/24 15:39) Burning rash on body sulfamethoxazole [From BACTRIM] Allergy (Unknown, Verified 10/24/24 15:39) RASH trimethoprim [From BACTRIM] Allergy (Unknown, Verified 10/24/24 15:39) RASH Medication List - Last Reconciled 10/24/24 by Glenna Nascimento PA-C alclometasone 0.05% 1 appl topical BID ascorbic acid (vitamin C) 500 mg PO DAILY ngbytsy-xrkfjodlbcgcy-ydizhbav 250-250-65 mg (Excedrin Migraine) 1 tab PO Q4-6H PRN azithromycin (Zithromax) For 250 mg dose pack: take 500 mg today (day 1), then 250 mg for 4 days (days 2-5) PO benzonatate 200 mg PO BEDTIME PRN cholecalciferol (vitamin D3) 25 mcg PO DAILY 90 days ferrous sulfate 325 mg PO DAILY 90 days fluocinolone 0.025% 1 appl topical BID fluticasone propionate 50 mcg/actuation (Flonase Allergy Relief) 2 sprays intranasal DAILY Lactobacillus rhamnosus GG (Culturelle) 1 cap PO DAILY lorazepam 0.5 mg PO DAILY PRN multivitamin with minerals (Hair,Skin and Nails tablet) 1 tab PO DAILY naproxen 500 mg PO BID PRN omeprazole 20 mg PO BID 90 days pravastatin 40 mg PO BEDTIME pyridoxine (vitamin B6) 100 mg PO DAILY 90 days tacrolimus 0.03% topical Tobacco use date assessed: 10/24/24 Fall risk assessment: No Falls in past year Last assessed Fall Risk: 10/24/24 Dental Screening Dental Screen Date: 08/22/24 HPI Rt 12/08 & Lt 12/12 cataract surgery - see comm HPI Details 74 year old female with past history of hypercholesterolemia, iron deficiency anemia, and CHIP last seen 08/[address] Clemons coming in for pre-op exam. Patient is scheduled to have cataract surgery with Syl[facility] canter right eye 12/08/2024 and left eye 12/12/2024. Patient has no history of CVA, MD, CHF or DM. She has had surgery and anesthesia in the past without complication. Patient does not smoke cigarettes, does not have a history of high blood pressure, is not on disease modifying drugs or biologics. [facility] Medical History Osteoporosis Acute dermatitis Upper back pain on right side Right-sided chest pain Fall Impacted cerumen of left ear Bunion, left foot H. pylori infection Bunion, left foot History of migraine Breast asymmetry Hypercholesterolemia Osteopenia Kidney stone Spinal stenosis at L4-L5 level Colon cancer screening (Unknown) Surgical History H/O foot surgery History of esophagogastroduodenoscopy (EGD) History of foot surgery History of colonoscopy Hx of bilateral oophorectomy History of vocal cord polypectomy Hx of tonsillectomy Family History Father Myocardial infarct Family history of arthritis Mother Pneumonia Myocardial infarct Brother No problems noted. Sister Lung cancer Paternal Aunt Rheumatoid arthritis Social History Household Members: Children Household Members Other:: son-43 years old Housing: House Alcohol intake: current Alcohol intake frequency: holidays/special occasions only Alcohol type: wine Patient Tobacco Use Status: Never used Tobacco Tobacco use type: Cigarette e-Cigarette/Vaping Use: Never Used Second Hand Smoke Exposure: No Advance Directives Date on File: 07/16/09 service: No Current occupational status: retired Cognitive needs: No Hearing needs: No Vision needs: Yes Questionnaire PHQ-9 Over the last 2 weeks, how often have you been bothered by any of the following problems? 1. Little interest or pleasure in doing things: not at all 2. Feeling down, depressed, or hopeless: not at all 3. Trouble falling or staying asleep, or sleeping too much: not at all 4. Feeling tired or having little energy: not at all 5. Poor appetite or overeating: not at all 6. Feeling bad about yourself - or that you are a failure or have let yourself or your family down: not at all 7. Trouble concentrating on things, such as reading the newspaper or watching television: not at all 8. Moving or speaking so slowly that other people could have noticed. Or the opposite - being so fidgety or restless that you have been moving around a lot more than usual: not at all 9. Thoughts that you would be better off or of hurting yourself in some way: not at all Total score: 0 Depression Screening Interpretation: Negative Depression Screening Done: Yes Source: Developed by Drs. Arsen Manuel, Lizet Ziegler, Ramon Franklin and colleagues, with an educational shelton from [employer]. Thrive Questionnaire Date Thrive assessed: 08/22/24 AUDIT C Alcohol Use Questionnaire (AUDIT-C) 2. How many drinks containing alcohol do you have on a typical day when you are drinking?: 1 or 2 3. How often do you have six or more drinks on one occasion?: Never Total Score: 0 CHIP-7 AMB Questionnaire CHIP-7 Date CHIP - 7 assessed: 08/22/24 Source: Developed by Drs. Arsen Manuel, Lizet Ziegler, Ramon Franklin and colleagues, with an educational shelton from [employer]. Review of Systems Const Denies body aches, Denies chills, Denies fever(s), Denies headache(s) and Denies poor appetite Eyes Reports no additional complaints ENT Denies dysphagia, Denies dizziness, Denies headache(s) and Denies odynophagia Card Denies chest pain, Denies syncope, Denies edema, Denies irregular heart rhythm, Denies lightheadedness and Denies dyspnea Resp Denies cough and Denies dyspnea GI Denies abdominal pain, Denies constipation, Denies dysphagia, Denies diarrhea, Denies nausea, Denies odynophagia and Denies vomiting Details: urinary leakage for the last few years Reports no additional complaints Musc Reports no additional complaints and Denies abnormal gait Skin/Breast Reports system reviewed and no additional complaints, except as documented Neuro Denies abnormal gait, Denies dizziness, Denies syncope and Denies headache(s) Psych Reports no additional complaints Physical exam (Primary Care) Vital Signs: Last Vital Signs Temp 97.5 F 10/24/24 15:39 Pulse 71 10/24/24 15:39 BP 120/66 10/24/24 15:39 Pulse Ox 97 10/24/24 15:39 Oxygen Delivery Method Room Air 10/24/24 15:39 BMI result Body Mass Index 22.7 Tobacco/Smoking Status: Tobacco use Status Tobacco use date assessed 10/24/24 10/24/24 15:39 Patient Tobacco Use Status Never used Tobacco 10/24/24 15:39 Tobacco use type Cigarette 10/24/24 15:39 e-Cigarette/Vaping Use Never Used 10/24/24 15:39 PHQ-9: PHQ-9 Score PHQ-9: Total score 0 10/24/24 15:39 Depression Screening Interpretation: Negative Thrive Assessment: Date of Thrive Assessment Date Thrive assessed 08/22/24 10/24/24 15:39 Const General: cooperative, healthy appearing, comfortable and no acute distress Orientation/consciousness: patient oriented x3 HENMT Head: Yes normocephalic Ears: hearing grossly normal bilaterally General nose exam: Normal external nose present Eyes General: appearance normal, both eyes and all related structures Conjunctivae: conjunctivae normal Neck Neck: Yes full ROM and Yes no lymphadenopathy Resp Effort & Inspection: normal respiratory effort Auscultation: clear to auscultation bilaterally, no crackles, no rales, no rhonchi and no wheezes Cardio Rate: regular rate Rhythm: regular rhythm Skin General skin exam: no rashes or lesions noted Neuro General: patient oriented x3 Gait exam (Neuro): Normal gait present Extrem General: Yes normal to inspection, Yes full ROM and No edema Psych Affect: normal affect Attitude: cooperative Insight: Good insight present (Psych) Judgement: Good judgement present (Psych) Coding Level of Care Code Est Pt Level 3 (40889) Diagnoses Pre-op evaluation Z01.818 Assessment & Plan Assessment & Plan (1) Pre-op evaluation: Code(s): Z01.818 - Encounter for other preprocedural examination Category: Medical Plan: Regarding preop clearance, the patient is at low-moderate risk for proposed surgery. Reviewed with the patient that no surgery is completely free of risk and that this examination is to assist the surgeon in reviewing informed consent. Cataract surgery is low risk procedure patient does not have any cardiac history and does not have any complaints at this time of chest pain or shortness of breath. Advised patient to avoid the use of NSAIDs 1 week prior to surgery. Patient may continue on all other medications as prescribed up until the day of the procedure. EKGs are not routinely performed prior to cataract surgery however if the surgeons requesting an EKG be completed on order may be placed. Blood work has been evaluated and reviewed with the patient today. No further workup needed at this time and may proceed with the contemplated procedure. Thank you very much for letting me participate in the care of this patient Plan This note was constructed using voice recognition software. While every effort has been made to ensure accuracy and service loss control consultant, still areas may have been included sometimes these areas may affect the content or meeting of the given symptoms. Total time spent caring for the patient today was 20 minutes. This includes time spent before the visit reviewing the chart, time spent during the visit, and time spent after the visit and documentation. Medications: Discontinued ferrous sulfate Discontinued Reason: Patient no longer taking 325 mg PO DAILY 90 days 90 tabs 2RF alclometasone 0.05% apply to periorbital area Discontinued Reason: Patient no longer taking 1 appl topical BID 15 grams 0RF L30.9 - Dermatitis, unspecified fluticasone propionate 50 mcg/actuation (Flonase Allergy Relief) administer into each nostril Discontinued Reason: Patient no longer taking 2 sprays intranasal DAILY 16 grams 2RF omeprazole Discontinued Reason: Patient no longer taking 20 mg PO BID 90 days 180 caps 2RF B96.81 - Helicobacter pylori [H. pylori] as the cause of diseases classified elsewhere, K29.70 - Gastritis, unspecified, without bleeding fluocinolone 0.025% Discontinued Reason: Patient no longer taking 1 appl topical BID 15 grams 0RF azithromycin (Zithromax) Discontinued Reason: Patient Completed Course For 250 mg dose pack: take 500 mg today (day 1), then 250 mg for 4 days (days 2-5) PO 6 tabs 0RF R09.81 - Nasal congestion Lactobacillus rhamnosus GG (Culturelle) Discontinued Reason: Patient Completed Course 1 cap PO DAILY 20 caps 0RF R09.81 - Nasal congestion benzonatate Discontinued Reason: Patient Completed Course 200 mg PO BEDTIME PRN 10 caps 0RF cough
[2024-10-24 15:39] VITALS: BP 120/66; PULSE 71; TEMP 36.4; O2SAT 97; BMI 22.7
--- OUTSIDE RECORDS SUMMARY | 2024-10-24 16:22 | XMS_ITS | Encounter Summary ---
Author Organization [facility] Address [address] [place] [id number] Care Team Providers Care Darkroom Worker Name Role Phone Unavailable Primary Care Provider Unavailabl e Encounter Details Date Type Department Care Team (Late st Contact Info) Description 03/26/2021 Erroneous Encounter [facility] CONVERSION DEPT [address] [place] [phone] Maciel Ellis MD [address] [place] [id number] Social History Tobacco Use Types Packs/Day Years [...]
--- OUTSIDE RECORDS SUMMARY | 2024-10-24 16:22 | XMS_ITS | Clinical Summary ---
Author Organization [facility] Address [address] [place] [address] Care Team Providers Care Health Information Administrator Name Role Phone Unavailable Primary Care Provider [...]
== END 2024-10-24 16:12 | disposition home or self-care (01) ==
LOC: HO.HMCH 15:36
PROVIDERS: PCP Internal Medicine
DX: Z01.818 Encounter for other preprocedural examination (principal)

== ENCOUNTER → 2024-10-24 15:36 | Outpatient (BNVA) | payer MEDICARE, OTHER, SELFPAY | PROVIDERS: PCP Internal Medicine | DX: Z01.818 Encounter for other preprocedural examination (principal); H26.9 Unspecified cataract | CPT/HCPCS: 99212 ==

== ENCOUNTER 2025-02-26 13:15 | Outpatient (REF) | payer MEDICARE, OTHER, SELFPAY ==
[2025-02-26 14:04] LABS: Appearance Urine Clear; Glucose Urine UA Negative (Negative); PH 5.5 (5.0-9.0); Specific Gravity - Urine 1.025 (1.005-1.025)
--- OUTSIDE RECORDS SUMMARY | 2025-02-26 18:23 | XMS_ITS | Clinical Summary ---
Author Organization [facility] Address [address] [place] [address] Care Team Providers Care Violin Repairer Name Role Phone Unavailable Primary Care Provider [...] Health Maintenance Due Date Last Done Comments Advance Care Planning 1950 Hepatitis C Virus Screening 1950 DTaP/Tdap/Td Vaccines (1 - Tdap) 01/19/1968 Pneumococcal Vaccines 50+ (1 of 1 - PCV) 1999 Zoster (Shingles) Vaccine (1 of 2) 1999 RSV Vaccine 60 years and old er and Patients (1 - 1-dose 75+ series) 01/19/2024 COVID-19 Vaccine ( - 2023-2 5 season) 2025 Hepatitis B Vaccines Aged Out No long er eligible based on patient's age to complete this topic
--- OUTSIDE RECORDS SUMMARY | 2025-02-26 18:23 | XMS_ITS | Encounter Summary ---
Author Organization [facility] Address [address] [place] [id number] Care Team Providers Care Historical Guide Name Role Phone Unavailable Primary Care Provider Unavailabl e Encounter Details Date Type Department Care Team (Late st Contact Info) Description 03/26/2021 Erroneous Encounter [facility] CONVERSION DEPT [address] [place] [phone] Maciel Ellis MD [address] [place] [id number] Social History Tobacco Use Types Packs/Day Years [...]
--- OUTSIDE RECORDS SUMMARY | 2025-02-26 18:23 | XMS_ITS ---
Author Name [facility] Organization Unknown Problems Problem Status Onset Date Problem Type Date of Resolution Source Osteoarthritis of ankle and foot, right active EncounterDiagnosisAct CCT
== END 2025-02-26 13:16 | disposition home or self-care (01) ==
LOC: HO.LAB 13:15
PROVIDERS: PCP Internal Medicine; Visit Provider Internal Medicine
DX: R30.0 Dysuria (principal); E78.00 Pure hypercholesterolemia, unspecified
CPT/HCPCS: 81003

== ENCOUNTER 2025-03-02 15:49 | Outpatient (AMB) | payer MEDICARE, OTHER, SELFPAY ==
--- OUTSIDE RECORDS SUMMARY | 2025-03-02 15:52 | XMS_ITS | Clinical Summary ---
Author Organization [facility] Address [address] [place] [address] Care Team Providers Care Sausage Inspector Name Role Phone Unavailable Primary Care Provider [...]
--- OUTSIDE RECORDS SUMMARY | 2025-03-02 15:52 | XMS_ITS | Encounter Summary ---
Author Organization [facility] Address [address] [place] [address] Care Team Providers Care Burr Mill Operator Name Role Phone Unavailable Primary Care Provider Unavailabl e Encounter Details Date Type Department Care Team (Late st Contact Info) Description 03/26/2021 Erroneous Encounter [facility] CONVERSION DEPT [address] [place] [phone] Maciel Ellis MD [address] [place] [id number] Social History Tobacco Use Types Packs/Day Years [...]
[2025-03-02 15:54] VITALS: BP 114/62; PULSE 74; O2SAT 98; BMI 22.5
--- NOTE | 2025-03-02 15:54 | AM.OFFVISMDC ---
Intake Vital Signs 03/02/25 15:54 Height 5 ft 1 in Weight 119 lb BMI 22.5 BP 114/62 Blood Pressure Location Lt brachial Position Sitting Pulse 74 Pulse Source Pulse Oximeter Pulse Oximetry (%) 98 Oxygen Delivery Method Room Air Intake Visit Reasons: awv Allergies doxycycline Allergy (Unknown, Verified 03/02/25 15:55) Foaming of the mouth simvastatin (SIMVASTATIN) Allergy (Unknown, Verified 03/02/25 15:55) LEG PAIN, muscle aches Sulfa (Sulfonamide Antibiotics) Allergy (Unknown, Verified 03/02/25 15:55) Burning rash on body sulfamethoxazole (From BACTRIM) Allergy (Unknown, Verified 03/02/25 15:55) RASH trimethoprim (From BACTRIM) Allergy (Unknown, Verified 03/02/25 15:55) RASH Medication List - Last Reconciled 03/02/25 by Julio Clemons MD [id number] [id number] mg (Excedrin Migraine) 1 tab PO Q4-6H PRN cholecalciferol (vitamin D3) 25 mcg PO DAILY 90 days lorazepam 0.5 mg PO DAILY PRN multivitamin with minerals (Hair,Skin and Nails tablet) 1 tab PO DAILY naproxen 500 mg PO BID PRN pravastatin 40 mg PO BEDTIME pyridoxine (vitamin B6) 100 mg PO DAILY 90 days HPI awv HPI Details [place] of care Dr. Duenas endocrinology, Pietro Mojica [facility] Ophthalmology, Orthopedics [facility] gastroenterology [facility] Urology Dr. Welch. seen Urology = for the incontinence [facility] Medical History Osteoporosis Acute dermatitis Upper back pain on right side Right-sided chest pain Fall Impacted cerumen of left ear Bunion, left foot H. pylori infection Bunion, left foot History of migraine Breast asymmetry Hypercholesterolemia Osteopenia Kidney stone Spinal stenosis at L4-L5 level Colon cancer screening (Unknown) Surgical History H/O foot surgery History of esophagogastroduodenoscopy (EGD) History of foot surgery History of colonoscopy Hx of bilateral oophorectomy History of vocal cord polypectomy Hx of tonsillectomy Family History Father Myocardial infarct Family history of arthritis Mother Pneumonia Myocardial infarct Brother No problems noted. Sister Lung cancer Paternal Aunt Rheumatoid arthritis Social History (Updated 03/02/25 @ 16:26 by Julio Clemons MD) Household Members: Children Household Members Other:: son-43 years old Housing: House Alcohol intake: current Alcohol intake frequency: holidays/special occasions only Alcohol type: wine Comment: once q 2 weeks 1 drinks Patient Tobacco Use Status: Never used Tobacco Tobacco use type: Cigarette e-Cigarette/Vaping Use: Never Used Second Hand Smoke Exposure: No Advance Directives Date on File: 07/16/09 service: No Current occupational status: retired Cognitive needs: No Hearing needs: No Vision needs: Yes Questionnaire Medicare Wellness Checkup [age] What gender do you identify with?: female During the past 4 weeks, how much have you been bothered by emotional problems such as feeling anxious, depressed, irritable, sad or downhearted, and blue?: slightly During the past 4 weeks, has your physical & emotional health limited your social activities with family, friends, neighbors, or groups?: slightly During the past 4 weeks, how much bodily pain have you generally had?: mild pain During the past 4 weeks, was someone available to help you if you needed & wanted help?: yes, some During the past 4 weeks, what was the hardest physical activity you could do for at least 2 minutes?: moderate Can you get to places out of walking distance without help? (For eg., can you travel alone on buses, taxis or drive your car?): Yes Can you go shopping for groceries or clothes without someone's help?: Yes Can you prepare your own meals?: Yes Can you do your housework without help?: Yes Because of any health problems, do you need the help of another person with your personal care needs such as eating, bathing, dressing or getting around the house?: No Can you handle your own money without help?: Yes During the past 4 weeks, how would you rate your health in general?: very good During the past 4 weeks how have things been going for you?: pretty well Are you having difficulties driving your car?: no Do you always fasten your seat belt when you are in a car?: yes, usually During past 4 weeks, have you been bothered by the following: never: Sexual problems?, Teeth or denture problems? and Problems using the telephone?, seldom: Trouble eating well? and sometimes: Falling or dizzy when standing up and Tiredness or fatigue? Have you fallen 2 or more times in the past year?: No Are you afraid of falling?: Yes Are you a smoker?: no During the past 4 weeks, how many drinks of wine, beer, or other alcoholic beverages did you have?: 1 drink or less per week Do you exercise for about 20 minutes 3 or more times a week?: yes, most of the time Have you been given information to help with the following?: no: Hazards in your house that might hurt you? and no: Keeping track of your medications? How often do you have trouble taking medicines the way you have been told to take them?: sometimes I take medicine as prescribed How confident are you that you can control & manage most of your health problems?: very confident What is your race?: White PHQ-9 Over the last 2 weeks, how often have you been bothered by any of the following problems? 1. Little interest or pleasure in doing things: not at all 2. Feeling down, depressed, or hopeless: not at all 3. Trouble falling or staying asleep, or sleeping too much: not at all 4. Feeling tired or having little energy: several days 5. Poor appetite or overeating: not at all 6. Feeling bad about yourself - or that you are a failure or have let yourself or your family down: not at all 7. Trouble concentrating on things, such as reading the newspaper or watching television: not at all 8. Moving or speaking so slowly that other people could have noticed. Or the opposite - being so fidgety or restless that you have been moving around a lot more than usual: not at all 9. Thoughts that you would be better off or of hurting yourself in some way: not at all Total score: 1 Depression Screening Interpretation: Positive Depression Screening Done: Yes Source: Developed by Drs. Arsen Manuel, Lizet Ziegler, Ramon Franklin and colleagues, with an educational shelton from [employer]. Review of Systems Const Denies poor appetite and Denies weakness Eyes Denies no additional complaints ENT Reports Normal hearing present, Denies dizziness, Denies nasal congestion, Denies tinnitus and Denies sore throat Card Denies chest pain, Denies syncope, Denies rapid heart rate and Denies dyspnea Resp Denies cough and Denies dyspnea GI Denies change in stool character, Reports constipation, Denies diarrhea, Denies nausea and Denies vomiting Denies urinary frequency, Denies difficulty voiding and Denies dysuria Neuro Reports Normal hearing present, Denies confusion, Denies dizziness, Denies syncope and Denies weakness Psych Denies confusion Physical Exam Vital Signs: Last Vital Signs Pulse 74 03/02/25 15:54 BP 114/62 03/02/25 15:54 Pulse Ox 98 03/02/25 15:54 Oxygen Delivery Method Room Air 03/02/25 15:54 BMI result Body Mass Index 22.5 Const General: No confusion Orientation/consciousness: No confusion HEENT Head: Yes normocephalic Ears: external ears normal and TM's normal bilaterally Face and sinus: Yes normal facial exam Mouth: moist mucous membranes Throat: Yes tonsils normal Eyes Conjunctivae: conjunctivae normal Pupils: Equal, round and reactive pupils present and Pupil accommodation reflex normal Direct Ophthalmoscopy: normal light reflex Neck Neck: No lymphadenopathy Thyroid: Thyroid normal Chest Chest palpation & inspection: normal inspection of the chest Resp Effort & Inspection: normal respiratory effort and no audible wheezes Auscultation: clear to auscultation bilaterally, no crackles, no wheezes and lung sounds not diminished Cardio Rate: regular rate Rhythm: regular rhythm Peripheral pulses: radial pulses present and dorsalis pedis present GI Palpation (GI): no masses Auscultation: normal bowel sounds and normoactive bowel sounds Rectal Exam - Female: deferred Skin General skin exam: no rashes or lesions noted Rashes: no rashes Neuro General: No confusion Cranial nerves: Yes Equal, round and reactive pupils present and Yes Normal hearing present Cognition (Neuro): normal cognition Gait exam (Neuro): Normal gait present Motor exam (neuro): 5/5 motor strength present throughout Deep tendon reflexes (DTR's): Right brachioradialis reflex intensity grade: 2+, Left brachioradialis reflex intensity grade: 2+, Right patellar reflex intensity grade: 2+ and Left patellar reflex intensity grade: 2+ Extrem General: No edema Assessment & Plan Assessment & Plan (1) Medicare annual wellness visit, subsequent: Code(s): Z00.00 - Encounter for general adult medical examination without abnormal findings (2) Spinal stenosis at L4-L5 level: Comment: Severe L3-L4 L5 injection November 2012 Code(s): M48.061 - Spinal stenosis, lumbar region without neurogenic claudication (3) Breast cancer screening by mammogram: Code(s): Z12.31 - Encounter for screening mammogram for malignant neoplasm of breast (4) Osteoporosis: Comment: January 2022 Code(s): M81.0 - Age-related osteoporosis without current pathological fracture (5) Generalized anxiety disorder: Comment: Declined referral for counseling Code(s): F41.1 - Generalized anxiety disorder (6) Urge incontinence: Code(s): N39.41 - Urge incontinence Plan History of Present Illness The patient is a 75-year-old female presenting for an annual wellness visit. She has a history of lumbar spinal stenosis, which causes discomfort, especially when on her feet for extended periods, leading to leg cramps that occasionally wake her at night. She manages these cramps by rubbing her legs, although they can be severe enough to prevent her from standing. The patient has hypercholesterolemia, which is currently well-managed with pravastatin 40 mg daily. Her cholesterol levels are good, with high HDL levels noted in recent blood work. She has a history of nephrolithiasis and iron deficiency anemia, although her recent blood work showed normal counts with no anemia. Her electrolytes and renal function are normal, but liver enzymes were mildly elevated. The patient experiences generalized anxiety disorder, for which she occasionally uses lorazepam as needed. She also reports migraines, managed with medication taken with food to avoid gastrointestinal discomfort. Osteoporosis is part of her medical history, with the last bone density scan conducted in April 2022. She is advised to maintain calcium and vitamin D intake and engage in regular physical activity, such as dancing. Urinary incontinence is a concern, with both stress and urge components identified. She has been advised on pelvic floor exercises and is considering medication to manage symptoms. Preventative care measures include a mammogram, which is due, and a colonoscopy last performed in 2019. Health Maintenance - Mammogram due - Colonoscopy last performed in 2019 - Bone density scan last conducted in April 2022 - Calcium and vitamin D intake recommended for osteoporosis management - Regular physical activity, such as dancing, encouraged Social History - Exercise: Engages in dancing and walking her dog regularly - Alcohol use: Consumes one drink every two weeks when dancing - Tobacco use: Tried smoking as a teenager but did not continue - Recreational drug use: Denies use - Sleep: Reports 6 hours of sleep per night, with additional naps during the day Review of Systems - Musculoskeletal: Reports leg cramps, especially at night - Neurological: Reports migraines, denies dizziness or syncope - Gastrointestinal: Denies nausea, vomiting, or dysphagia - Cardiovascular: Denies chest pain or palpitations - Respiratory: Denies dyspnea or cough - Genitourinary: Reports urinary incontinence, denies hematuria - Sleep: Reports feeling tired during the day, takes naps Physical Exam General: Cooperative, healthy appearing, comfortable, no acute distress and well developed Orientation: Patient oriented x3 Limitations: No limitations Head: Normal to inspection Ears: Hearing grossly normal bilaterally, but sometimes has difficulty making out words when people have different accents Nose: Normal external nose present Face and sinus: Normal facial exam Eyes: Appearance normal, both eyes and all related structures Neck: Normal visual inspection and Yes full ROM Respiratory: Normal respiratory effort and able to speak in complete sentences. Clear to auscultation bilaterally Cardiovascular: Regular rate and rhythm. Normal S1 and S2 GI: Normal to inspection. Soft to palpation and nontender Skin: No rashes or lesions noted Neuro: Patient oriented x3 Extremities: Normal to inspection, but patient reports leg cramps sometimes, especially when on feet for long periods Results - Labs: Normal blood count, no anemia, electrolytes and renal function normal, liver enzymes mildly elevated - Imaging: Bone density scan last conducted in April 2022 Plan Patient was informed and verbally consented to the use of an ambient scribe for clinic note documentation during this visit. 1. Lumbar Spinal Stenosis The patient experiences discomfort due to lumbar spinal stenosis, particularly when standing for extended periods, leading to leg cramps. Management includes lifestyle modifications such as avoiding prolonged standing and using leg massages to alleviate cramps. 2. Hypercholesterolemia The patient's hypercholesterolemia is well-managed with pravastatin 40 mg daily, with recent labs showing good cholesterol levels and high HDL. 3. Nephrolithiasis The patient has a history of nephrolithiasis, but recent renal function tests are normal. 4. Iron Deficiency Anemia The patient has a history of iron deficiency anemia, but recent blood work shows normal counts with no anemia. 5. Generalized Anxiety Disorder The patient manages generalized anxiety disorder with lorazepam as needed. 6. Osteoporosis Osteoporosis management includes maintaining calcium and vitamin D intake and engaging in regular physical activity, such as dancing. 7. Urinary Incontinence The patient experiences both stress and urge urinary incontinence. Management includes pelvic floor exercises and considering medication to manage symptoms. 8. Elevated Liver Enzymes The patient has mildly elevated liver enzymes, which will be monitored with follow-up blood work. 9. Preventative Care Preventative care includes scheduling a mammogram and considering a colonoscopy, as the last one was performed in 2019. Discussion Notes During the visit, we discussed the management of lumbar spinal stenosis, emphasizing lifestyle modifications to alleviate symptoms. We reviewed the patient's cholesterol management, confirming that her current regimen is effective. We addressed her urinary incontinence, exploring both non-pharmacological and pharmacological options. Preventative care measures were highlighted, including the need for a mammogram and consideration of a colonoscopy. Patient Instructions - Schedule a mammogram and consider a colonoscopy. - Continue current cholesterol management with pravastatin. - Practice pelvic floor exercises for urinary incontinence. - Maintain calcium and vitamin D intake for bone health. - Engage in regular physical activity, such as dancing. Orders: Orders Comprehensive Met. Panel 6 Months E78.00 - Pure hypercholesterolemia, unspecified Thyroid Stimulating Hormone 6 Months E78.00 - Pure hypercholesterolemia, unspecified Vitamin D 25-OH Total 6 Months E78.00 - Pure hypercholesterolemia, unspecified Magnesium 6 Months E78.00 - Pure hypercholesterolemia, unspecified Complete Blood Count Auto Diff 6 Months E78.00 - Pure hypercholesterolemia, unspecified Free T4 (Free Thyroxine) 6 Months E78.00 - Pure hypercholesterolemia, unspecified Lipid Panel 6 Months E78.00 - Pure hypercholesterolemia, unspecified Vitamin B12 and Folate 6 Months E78.00 - Pure hypercholesterolemia, unspecified Hemoglobin A1c 6 Months E78.00 - Pure hypercholesterolemia, unspecified Medications: New mirabegron ER (Myrbetriq) 25 mg PO DAILY 30 tabs 0RF N39.41 - Urge incontinence Changed From cholecalciferol (vitamin D3) 25 mcg PO DAILY 90 days 90 caps 3RF N39.41 - Urge incontinence To cholecalciferol (vitamin D3) 50 mcg PO DAILY 90 caps 3RF 90 days N39.41 - Urge incontinence Refilled pravastatin 40 mg PO BEDTIME 90 tabs 2RF N39.41 - Urge incontinence Quality Reporting (2019) Depression/Bipolar (159/160/161/177) PHQ-9: Total score: 1 Coding Level of Care Code Medicare Subsequent (G0439) Diagnoses Medicare annual wellness visit, subsequent Z00.00 Spinal stenosis at L4-L5 level M48.061 Breast cancer screening by mammogram Z12.31 Osteoporosis M81.0 Generalized anxiety disorder F41.1 Urge incontinence N39.41
== END 2025-03-02 16:52 | disposition home or self-care (01) ==
LOC: HO.HMCH 15:50
PROVIDERS: PCP Internal Medicine; Visit Provider Internal Medicine
DX: Z00.00 Encounter for general adult medical examination without abnormal findings (principal); M48.061 Spinal stenosis, lumbar region without neurogenic claudication; Z12.31 Encounter for screening mammogram for malignant neoplasm of breast; M81.0 Age-related osteoporosis without current pathological fracture; F41.1 Generalized anxiety disorder; N39.41 Urge incontinence